=== PATIENT | male | born 1965 | race Caucasian/White ===

== ENCOUNTER 2018-04-29 12:06 | Emergency (ER) | payer MEDICAID, SELFPAY ==
[2018-04-29 12:17] VITALS: BP 144/86; PULSE 100; RESP 18; TEMP 36.6; O2SAT 96
--- NOTE | 2018-04-29 13:10 | DI.CT_ITS ---
SYMPTOMS/DIAGNOSIS: HARD NONMOBILE MASS, RIGHT NECK, HARD LYMPH NODE, LEFT NECK, ? NEOPLASM VS ABSCESS CT SCAN OF THE NECK: CT scan of the neck was performed following the uneventful administration of intravenous contrast material. There are bilateral necrotic masses in the neck. In the left neck, the largest such mass measures 2.4 cm AP x 2.4 cm transverse. This is located at the level of the angle of the mandible (series 5 image 303). On the right, there is a large necrotic mass with ill-defined borders measuring at least 4.9 cm transverse x 5.4 cm AP (series 5 image 317). This mass also lies at the angle of the mandible deep to the inferior aspect of the parotid gland. It does appear to displace the carotid artery medially. The mass appears to measure 6.6 cm craniocaudally. The airway is deviated to the left at the level of the uvula to the level of the epiglottis. The fat planes in the left parapharyngeal space are obliterated. This may be due to the large right necrotic mass, but the possibility of an infiltrative mass involving the tonsils and tongue base cannot be excluded in this region. The left submandibular gland is unremarkable. The right submandibular gland is visualized. There is loss of a fat plate between the posterior aspect of the right submandibular gland and the large necrotic right mass. The thyroid gland is unremarkable. The soft tissues of the right neck are infiltrative. No focal fluid collection is seen, but there does appear to be some thickening of the skin and the right and the right platysma. The lung apices show central lobular emphysematous changes. In the left upper lobe on the last images, there is a question of a filling defect in a vessel in the left upper lobe and pulmonary embolus cannot be excluded. CT PE scan of the chest should be considered for further evaluation. There is opacification of the right ethmoid air cells and near complete opacification of the right maxillary sinus. There is mucosal thickening seen in the right mastoid air cells. The left maxillary sinus is well pneumatized. Mild degenerative changes are seen in the spine. IMPRESSION: 1. Enlarged cervical necrotic masses suspicious for necrotic lymphadenopathy. The largest mass is seen in the right neck at the level of the angle of the mandible. Differential considerations include metastatic disease, lymphoma. Infectious or inflammatory process is considered less likely. 2. Leftward deviation of the airway with loss of fat planes in the right parapharyngeal space and an infiltrative mass cannot be excluded. This may represent a primary head and neck cancer. MRI with contrast may be considered for further evaluation. 3. Question of a filling defect in a vessel in the left upper lobe. CT PE scan of the chest is recommended to exclude a pulmonary embolus. 4. Extensive sinus disease, particularly involving the right paranasal sinuses and right mastoid air cells. These findings were discussed with the Emergency Department on the date of the examination.
[2018-04-29] MEDS: Normal Saline 1,000 ML 1000 ML IV (13:15)
[2018-04-29 13:31] LABS: Abs Immature Grans 0.01 k/cumm (0.0-0.09); Absolute Basophil Count 0.03 k/cumm (0.0-0.2); Absolute Eosinophil Count 0.13 k/cumm (0.0-0.7); Absolute Lymphocyte Count 2.34 k/cumm (1.2-3.4); Absolute Monocyte Count 0.51 k/cumm (0.11-0.7); Absolute Neutrophil Count 5.04 k/cumm (1.2-6.7); Basophils % 0.4; Eosinophils % 1.6; HCT 42.5 % (40.0-50.0); Immature Grans % 0.1; Mean Corp. HGB Concentration 32.9 g/dL (32.0-36.0); Mean Corpuscular Volume 91.2 fL (80-95); Mean Platelet Volume 8.7 fL (8.0-11.0); Monocytes % 6.3; Neutrophils % 62.6; Platelet Count 535 x1000/uL (130-400); RBC 4.66 m/cumm (4.50-6.00); RBC Distribution Width 14.2 % (11.8-14.1); White Blood Cell Count 8.06 k/cumm (4.4-10.8)
[2018-04-29 13:48] LABS: ALT 10 U/L (12-78); AST 14 U/L (15-37); Albumin 3.5 g/dL (3.4-5.0); Alkaline Phosphatase 110 U/L (46-116); Anion Gap 9.3 mmol/L (3-11); BUN 10 mg/dL (7-18); Bilirubin, Total 0.3 mg/dL (0.2-1.0); CO2 29.7 mmol/L (21.0-32.0); CREATININE 0.94 mg/dL (0.70-1.30); Calcium 9.3 mg/dL (8.5-10.1); Chloride 99 mmol/L (98-107); Glucose 116 mg/dL (70-100); Sodium 138 mmol/L (136-145); Total Protein 8.2 g/dL (6.4-8.2)
[2018-04-29] MEDS: Omnipaque 350 MG/ML 100 ML BTL IJ ×2 (14:34→15:37)
--- NOTE | 2018-04-29 14:41 | W.ED.GENAD ---
Discharge Plan Disposition Patient Disposition: HOME Condition: Stable Discharge Details Chief Complaint: GenMedical Clinical Impression: Mass of right side of neck, Lymphadenopathy Primary Care Provider: None,None ED Provider: Perla Balbuena Home Meds and New Rx's Prescriptions: New methylprednisolone [Medrol (Butch)] 4 mg tablets,dose pack See Rx Instructions .ROUTE .COMPLEX Qty: 21 RF: 0 No Action No Known Home Meds RF: 0 Discharge Instructions Instructions: Lymphadenopathy (ED) Additional Instructions: You will receive a call from [facility] ENT/Head and Neck clinic in the next few days regarding follow up within the next week. If you do not hear from [facility] in the next few days, you may call the [facility] Main number at [phone] and ask for ENT or Head and Neck Clinic - Dr. Moore. Take the steroids until finished. Return immediately to the emergency department if you have any worsening or new concerning symptoms such as difficulty breathing, swallowing or unable to take any food or drink. Discharge Data Discharge Physician: Perla Balbuena Medical Decision Making 53-year-old male with no documented history who is a chronic tobacco smoker who presents with chronic right-sided neck swelling for the past month, worse over the past few days along with clear and yellow rhinorrhea, and a weight loss of 30 pounds over the past 3 months. Blood pressure mildly hypertensive eyeballs. Afebrile. Patient has a hard large tender non-mobile mass in the right lateral neck, as well as a hard nonmobile tender lymph node in the left lateral neck. There appears to be an encroaching mass in his right posterior oropharynx causing deviation of the uvula to the left. He has some trismus. His airway otherwise appears intact, he is speaking in full sentences without respiratory distress, or drooling. Lungs clear to auscultation. My main concern will be a neoplastic process. Will place an IV, fluids, labs and send for CT neck. 1445 --discussed with radiology -CT notes bilateral adenopathy in the neck with some deviation of the airway to the left. Differential diagnosis includes primary tongue cancer, salivary gland tumor, Hodgkin's lymphoma, or metastatic cancer. There was a concern for a vessel in the chest for possible PE. Radiologist is recommending a CT chest to rule out PE. Will call [facility] ENT for recommendations and possible transfer. 1500 --discussed with [facility] ENT -he reviewed CT and agree with concern for possible primary tongue or salivary Cancer with metastasis. Patient will need biopsy to confirm etiology. Patient may also be appropriate for palliative care due to extent of tumor and metastases. There does not appear to be significant encroachment on the airway, and based on CT findings, and if patient is protecting his airway without stridor and able to take p.o., can be discharged home with follow-up with them within the next week in the head and neck clinic. Recommend Medrol Dosepak upon discharge. Will give 1 dose of steroids here. 1555 --CT chest negative for PE. 1630 --CT findings and plan per ENT d/w pt. He was notified that findings are concerning for a neoplasm, but will need further evaluation by ENT for determination of etiology and how to proceed further. Patient states he is able to take p.o., and able to swallow liquids and solids. He has no stridor. He feels good to go home. He is instructed that [facility] ENT will call him this week to schedule follow-up appointment, and to call them with any concerns or if he does not hear back. He is instructed to return here at any time with any worsening symptoms, if occult he swallowing, breathing or inability to take p.o. Medical Records Medical records reviewed: Yes I reviewed the patient's medical records. Imaging Data Radiologic Study: Radiologist's impression: CT SCAN OF THE NECK: CT scan of the neck was performed following the uneventful administration of intravenous contrast material. There are bilateral necrotic masses in the neck. In the left neck, the largest such mass measures 2.4 cm AP x 2.4 cm transverse. This is located at the level of the angle of the mandible (series 5 image 303). On the right, there is a large necrotic mass with ill-defined borders measuring at least 4.9 cm transverse x 5.4 cm AP (series 5 image 317). This mass also lies at the angle of the mandible deep to the inferior aspect of the parotid gland. It does appear to displace the carotid artery medially. The mass appears to measure 6.6 cm craniocaudally. The airway is deviated to the left at the level of the uvula to the level of the epiglottis. The fat planes in the left parapharyngeal space are obliterated. This may be due to the large right necrotic mass, but the possibility of an infiltrative mass involving the tonsils and tongue base cannot be excluded in this region. The left submandibular gland is unremarkable. The right submandibular gland is visualized. There is loss of a fat plate between the posterior aspect of the right submandibular gland and the large necrotic right mass. The thyroid gland is unremarkable. The soft tissues of the right neck are infiltrative. No focal fluid collection is seen, but there does appear to be some thickening of the skin and the right and the right platysma. The lung apices show central lobular emphysematous changes. In the left upper lobe on the last images, there is a question of a filling defect in a vessel in the left upper lobe and pulmonary embolus cannot be excluded. CT PE scan of the chest should be considered for further evaluation. There is opacification of the right ethmoid air cells and near complete opacification of the right maxillary sinus. There is mucosal thickening seen in the right mastoid air cells. The left maxillary sinus is well pneumatized. Mild degenerative changes are seen in the spine. IMPRESSION: 1. Enlarged cervical necrotic masses suspicious for necrotic lymphadenopathy. The largest mass is seen in the right neck at the level of the angle of the mandible. Differential considerations include metastatic disease, lymphoma. Infectious or inflammatory process is considered less likely. 2. Leftward deviation of the airway with loss of fat planes in the right parapharyngeal space and an infiltrative mass cannot be excluded. This may represent a primary head and neck cancer. MRI with contrast may be considered for further evaluation. 3. Question of a filling defect in a vessel in the left upper lobe. CT PE scan of the chest is recommended to exclude a pulmonary embolus. 4. Extensive sinus disease, particularly involving the right paranasal sinuses and right mastoid air cells. CT chest: negative for PE, acute disease, or mets. Lab Data Lab results reviewed: Yes I reviewed the patient's lab results. Laboratory Tests Range/Units 04/29/18 04/29/18 13:25 13:25 WBC (4.4-10.8) k/cumm 8.06 RBC (4.50-6.00) m/cumm 4.66 Hgb (13.5-17.5) g/dL 14.0 Hct (40.0-50.0) % 42.5 MCV (80-95) fL 91.2 MCH (27.0-33.0) pg 30.0 MCHC (32.0-36.0) g/dL 32.9 RDW (11.8-14.1) % 14.2 H Plt Count (130-400) x1000/uL 535 H MPV (8.0-11.0) fL 8.7 Immature Gran % 0.1 Neutrophils % 62.6 Lymphocytes % 29.0 Monocytes % 6.3 Eosinophils % 1.6 Basophils % 0.4 Absolute Neutrophils (1.2-6.7) k/cumm 5.04 Absolute Lymphocytes (1.2-3.4) k/cumm 2.34 Absolute Monocytes (0.11-0.7) k/cumm 0.51 Absolute Eosinophils (0.0-0.7) k/cumm 0.13 Absolute Basophils (0.0-0.2) k/cumm 0.03 Sodium (136-145) mmol/L 138 Potassium (3.5-5.1) mmol/L 4.0 Chloride (98-107) mmol/L 99 Carbon Dioxide (21.0-32.0) mmol/L 29.7 Anion Gap (3-11) mmol/L 9.3 BUN (7-18) mg/dL 10 Creatinine (0.70-1.30) mg/dL 0.94 Estimated GFR/1.73 m2 (mL/min/1.73m2) >= 60.00 Glucose (70-100) mg/dL 116 H Calcium (8.5-10.1) mg/dL 9.3 Total Bilirubin (0.2-1.0) mg/dL 0.3 AST (15-37) U/L 14 L ALT (12-78) U/L 10 L Alkaline Phosphatase (46-116) U/L 110 Total Protein (6.4-8.2) g/dL 8.2 Albumin (3.4-5.0) g/dL 3.5 HPI General Mode of arrival: ambulatory. Date/Time Provider Initiated Documentation: 04/29/18 12:26. Limitations to Documentation: no limitations. Information obtained by: patient. HPI Narrative: Patient is a 53-year-old male who presents with right-sided neck swelling for the past month, worse over the past few days. He also admits to clear and yellow nasal discharge. He states lately when he drinks any fluids it comes out both sides of his nose. He also states he has lost approximately 30 pounds in the last 3 months. He denies any known fever. He states he smokes approximately 1 pack daily and does have a chronic cough. Related Data Home Medications Medication Instructions Recorded Confirmed Unknown [No Known Home Meds] 04/29/18 04/29/18 methylprednisolone [Medrol (Butch)] See Rx Instructions .ROUTE 04/29/18 .COMPLEX #21 dose pk Previous Rx's Medication Instructions Recorded methylprednisolone [Medrol (Butch)] See Rx Instructions .ROUTE 04/29/18 .COMPLEX #21 dose pk Allergies Allergy/AdvReac Type Severity Reaction Status Date / Time No Known Allergies Allergy Unverified 04/29/18 12:17 General Stated Complaint: GenMedical SIRISHA: 3 Review of Systems Review of Systems All systems reviewed & are unremarkable except as noted in HPI and below Constitutional Denies chills, Denies excessive sweating, Denies fatigue, Denies fever(s), Denies weakness and Reports weight loss Eyes Reports system reviewed and no additional complaints, except as docu and Denies blurry vision ENT Denies vertigo, Denies dizziness, Denies otalgia, Reports nasal congestion, Reports neck mass, Reports neck pain, Reports sore throat and Reports throat swelling Cardiovascular Denies chest pain, Denies syncope, Denies rapid heart rate and Denies dyspnea Respiratory Denies chest congestion, Reports cough, Denies pain on inspiration and Denies dyspnea Gastrointestinal Denies abdominal pain, Denies diarrhea and Denies vomiting Genitourinary Denies hematuria, Denies dysuria and Denies flank pain Musculoskeletal Denies back pain, Denies joint swelling and Reports neck pain Integumentary/Breasts Denies lesions and Denies rash Neurologic Denies behavioral changes, Denies confusion, Denies vertigo, Denies dizziness, Denies syncope, Denies focal weakness and Denies weakness Psychiatric Denies behavioral changes, Denies confusion and Denies depression Endocrine Denies excessive sweating and Denies fatigue Hematologic/Lymphatic Denies easy bruising and Denies lymphadenopathy Allergic/Immunologic Reports throat swelling [facility] Medical History No significant past medical history (Acute) Surgical History No significant past surgical history (Acute) Social History Smoking and Tabacco status: Current every day tobacco type: cigarettes alcohol intake: former year quit: 2016 substance use type: does not use Exam Const General: cooperative and no acute distress Orientation: alert, awake and oriented x3 HENMT Head: normal to inspection Ears: hearing grossly normal bilaterally, external ears normal and TM abnormal erythematous on the right General nose exam: external nose normal and other (Nasal congested sound with talking) Teeth and gingiva: dentition normal Throat: posterior oropharynx abnormal (significant mass/edema noted in R posterior oropharynx) edema, erythema and exudates and uvula laterally displaced to the left Eyes General: appearance normal, both eyes and all related structures Eyelids: eyelids normal Pupils: PERRL EOM: EOM intact bilaterally Neck Neck: normal visual inspection Lymphatic: no lymphadenopathy noted Neck images: 1. Approx. 8x8cm large Hard tender nonmobile mass noted in right lateral neck just below ear. 2. 4x4cm hard tender mass, may be lymph node Chest Chest: normal inspection of the chest Resp Effort & Inspection: normal respiratory effort and able to speak in complete sentences Auscultation: clear to auscultation bilaterally Cardio Rate: regular rate Rhythm: regular rhythm GI Inspection: normal to inspection Palpation: soft, not firm, no guarding, no hepatosplenomegaly, no masses and nontender Auscultation: normal bowel sounds Back/Spine/Pelvis Back: no CVA tenderness Skin General skin exam: no rashes or lesions noted Neuro General: alert and awake Cognition: normal cognition Speech: speech normal Gait: normal gait Motor: muscle tone normal throughout Sensory Exam: no sensory deficits noted Extrem General: normal to inspection, full ROM and normal capillary refill Psych Appearance: grossly normal Mental Status: mental status grossly normal Speech and Movement: speech and movement normal Affect: normal affect Thought Process: normal Course Vital Signs Temperature 97.9 F 04/29/18 12:17 Pulse 100 H 04/29/18 12:17 Respiratory Rate 18 04/29/18 12:17 Blood Pressure 144/86 H 04/29/18 12:17 Pulse Oximetry 96 04/29/18 12:17 Temperature 97.9 F 04/29/18 12:17 Temperature Source Temporal Artery Scan 04/29/18 12:17 Pulse 100 H 04/29/18 12:17 Respiratory Rate 18 04/29/18 12:17 Respiratory Effort Non-Labored 04/29/18 12:24 Blood Pressure 144/86 H 04/29/18 12:17 Blood Pressure Position Sitting 04/29/18 12:17 Pulse Oximetry 96 04/29/18 12:17 Oxygen Delivery Method Room Air 04/29/18 12:17 Oxygen Flow Rate 0 04/29/18 12:17 Pain Level 7 04/29/18 12:17 Lab/Test Results Lab/Test Results: Laboratory Tests Range/Units 04/29/18 04/29/18 13:25 13:25 WBC (4.4-10.8) k/cumm 8.06 RBC (4.50-6.00) m/cumm 4.66 Hgb (13.5-17.5) g/dL 14.0 Hct (40.0-50.0) % 42.5 MCV (80-95) fL 91.2 MCH (27.0-33.0) pg 30.0 MCHC (32.0-36.0) g/dL 32.9 RDW (11.8-14.1) % 14.2 H Plt Count (130-400) x1000/uL 535 H MPV (8.0-11.0) fL 8.7 Immature Gran % 0.1 Neutrophils % 62.6 Lymphocytes % 29.0 Monocytes % 6.3 Eosinophils % 1.6 Basophils % 0.4 Absolute Neutrophils (1.2-6.7) k/cumm 5.04 Absolute Lymphocytes (1.2-3.4) k/cumm 2.34 Absolute Monocytes (0.11-0.7) k/cumm 0.51 Absolute Eosinophils (0.0-0.7) k/cumm 0.13 Absolute Basophils (0.0-0.2) k/cumm 0.03 Sodium (136-145) mmol/L 138 Potassium (3.5-5.1) mmol/L 4.0 Chloride (98-107) mmol/L 99 Carbon Dioxide (21.0-32.0) mmol/L 29.7 Anion Gap (3-11) mmol/L 9.3 BUN (7-18) mg/dL 10 Creatinine (0.70-1.30) mg/dL 0.94 Estimated GFR/1.73 m2 (mL/min/1.73m2) >= 60.00 Glucose (70-100) mg/dL 116 H Calcium (8.5-10.1) mg/dL 9.3 Total Bilirubin (0.2-1.0) mg/dL 0.3 AST (15-37) U/L 14 L ALT (12-78) U/L 10 L Alkaline Phosphatase (46-116) U/L 110 Total Protein (6.4-8.2) g/dL 8.2 Albumin (3.4-5.0) g/dL 3.5
--- NOTE | 2018-04-29 14:45 | ED.GENADUL_ITS ---
Discharge Plan Disposition Patient Disposition: HOME Condition: Stable Discharge Details Chief Complaint: GenMedical Clinical Impression: Mass of right side of neck, Lymphadenopathy Primary Care Provider: None,None ED Provider: Perla Balbuena Home Meds and New Rx's Prescriptions: New methylprednisolone [Medrol (Butch)] 4 mg tablets,dose pack See Rx Instructions .ROUTE .COMPLEX Qty: 21 RF: 0 No Action No Known Home Meds RF: 0 Discharge Instructions Instructions: Lymphadenopathy (ED) Additional Instructions: You will receive a call from [facility] ENT/Head and Neck clinic in the next few days regarding follow up within the next week. If you do not hear from [facility] in the next few days, you may call the [facility] Main number at [phone] and ask for ENT or Head and Neck Clinic - Dr. Moore. Take the steroids until finished. Return immediately to the emergency department if you have any worsening or new concerning symptoms such as difficulty breathing, swallowing or unable to take any food or drink. Discharge Data Discharge Physician: Perla Balbuena Medical Decision Making 53-year-old male with no documented history who is a chronic tobacco smoker who presents with chronic right-sided neck swelling for the past month, worse over the past few days along with clear and yellow rhinorrhea, and a weight loss of 30 pounds over the past 3 months. Blood pressure mildly hypertensive eyeballs. Afebrile. Patient has a hard large tender non-mobile mass in the right lateral neck, as well as a hard no nmobile tender lymph node in the left lateral neck. There appears to be an encroaching mass in his right posterior oropharynx causing deviation of the uvula to the left. He has some trismus. His airway otherwise appears intact, he is speaking in full sentences without respiratory distress, or drooling. Lungs clear to auscultation. My main concern will be a neoplastic process. Will place an IV, fluids, labs and send for CT neck. 1445 --discussed with radiology -CT notes bilateral adenopathy in the neck with some deviation of the airway to the left. Differential diagnosis includes primary tongue cancer, salivary gland tumor, Hodgkin's lymphoma, or metastatic cancer. There was a concern for a vessel in the chest for possible PE. Radiologist is recommending a CT chest to rule out PE. Will call [facility] ENT for recommendations and possible transfer. 1500 --discussed with [facility] ENT -he reviewed CT and agree with concern for possible primary tongue or salivary Cancer with metastasis. Patient will need biopsy to confirm etiology. Patient may also be appropriate for palliative care due to extent of tumor and metastases. There does not appear to be significant encroachment on the airway, and based on CT findings, and if patient is protecting his airway without stridor and able to take p.o., can be discharged home with follow-up with them within the next week in the head and neck clinic. Recommend Medrol Dosepak upon discharge. Will give 1 dose of steroids here. 1555 --CT chest negative for PE. 1630 --CT findings and plan per ENT d/w pt. He was notified that findings are concerning for a neoplasm, but will need further evaluation by ENT for determination of etiology and how to proceed further. Patient states he is able to take p.o., and able to swallow liquids and solids. He has no stridor. He feels good to go home. He is instructed that [facility] ENT will call him this week to schedule follow- up appointment, and to call them with any concerns or if he does not hear back. He is instructed to return here at any time with any worsening symptoms, if occult he swallowing, breathing or inability to take p.o. Medical Records Medical records reviewed: Yes I reviewed the patient's medical records. Imaging Data Radiologic Study: Radiologist's impression: CT SCAN OF THE NECK: CT scan of the neck was performed following the uneventful administration of intravenous contrast material. There are bilateral necrotic masses in the neck. In the left neck, the largest such mass measures 2.4 cm AP x 2.4 cm transverse. This is located at the level of the angle of the mandible (series 5 image 303). On the right, there is a large necrotic mass with ill-defined borders measuring at least 4.9 cm transverse x 5.4 cm AP (series 5 image 317). This mass also lie s at the angle of the mandible deep to the inferior aspect of the parotid gland. It does appear to displace the carotid artery medially. The mass appears to measure 6.6 cm craniocaudally. The airway is deviated to the left at the level of the uvula to the level of the epiglottis. The fat planes in the left parapharyngeal space are obliterated. This may be due to the large right necrotic mass, but the possibility of an infiltrative mass involving the tonsils and tongue base cannot be excluded in this region. The left submandibular gland is unremarkable. The right submandibular gland is visualized. There is loss of a fat plate between the posterior aspect of the right submandibular gland and the large necrotic right mass. The thyroid gland is unremarkable. The soft tissues of the right neck are infiltrative. No focal fluid collection is seen, but there does appear to be some thickening of the skin and the right and the right platysma. The lung apices show central lobular emphysematous changes. In the left upper lobe on the last images, there is a question of a filling defect in a vessel in the left upper lobe and pulmonary embolus cannot be excluded. CT PE scan of the chest should be considered for further evaluation. There is opacification of the right ethmoid air cells and near complete opacification of the right maxillary sinus. There is mucosal thickening seen in the right mastoid air cells. The left maxillary sinus is well pneumatized. Mild degenerative changes are seen in the spine. IMPRESSION: 1. Enlarged cervical necrotic masses suspicious for necrotic lymphadenopathy. The largest mass is seen in the right neck at the level of the angle of the mandible. Differential considerations include metastatic disease, lymphoma. Infectious or inflammatory process is considered less likely. 2. Leftward deviation of the airway with loss of fat planes in the right parapharyngeal space and an infiltrative mass cannot be excluded. This may represent a primary head and neck cancer. MRI with contrast may be considered for further evaluation. 3. Question of a filling defect in a vessel in the left upper lobe. CT PE scan of the chest is recommended to exclude a pulmonary embolus. 4. Extensive sinus disease, particularly involving the right paranasal sinuses and right mastoid air cells. CT chest: negative for PE, acute disease, or mets. Lab Data Lab results reviewed: Yes I reviewed the patient's lab results. Laboratory Tests Range/Units 04/29/18 04/29/18 13:25 13:25 WBC (4.4-10.8) k/cumm 8.06 RBC (4.50-6.00) m/cumm 4.66 Hgb (13.5-17.5) g/dL 14.0 Hct (40.0-50.0) % 42.5 MCV (80-95) fL 91.2 MCH (27.0-33.0) pg 30.0 MCHC (32.0-36.0) g/dL 32.9 RDW (11.8-14.1) % 14.2 H Plt Count (130-400) x1000/uL 535 H MPV (8.0-11.0) fL 8.7 Immature Gran % 0.1 Neutrophils % 62.6 Lymphocytes % 29.0 Monocytes % 6.3 Eosinophils % 1.6 Basophils % 0.4 Absolute Neutrophils (1.2-6.7) k/cumm 5.04 Absolute Lymphocytes (1.2-3.4) k/cumm 2.34 Absolute Monocytes (0.11-0.7) k/cumm 0.51 Absolute Eosinophils (0.0-0.7) k/cumm 0.13 Absolute Basophils (0.0-0.2) k/cumm 0.03 Sodium (136-145) mmol/L 138 Potassium (3.5-5.1) mmol/L 4.0 Chloride (98-107) mmol/L 99 Carbon Dioxide (21.0-32.0) mmol/L 29.7 Anion Gap (3-11) mmol/L 9.3 BUN (7-18) mg/dL 10 Creatinine (0.70-1.30) mg/dL 0.94 Estimated GFR/1.73 m2 (mL/min/1.73m2) >= 60.00 Glucose (70-100) mg/dL 116 H Calcium (8.5-10.1) mg/dL 9.3 Total Bilirubin (0.2-1.0) mg/dL 0.3 AST (15-37) U/L 14 L ALT (12-78) U/L 10 L Alkaline Phosphatase (46-116) U/L 110 Total Protein (6.4-8.2) g/dL 8.2 Albumin (3.4-5.0) g/dL 3.5 HPI General Mode of arrival: ambulatory . Date/Time Provider Initiated Documentation: 04/29/18 12:26 . Limitations to Documentation: no limitations . Information obtained by: patient . HPI Narrative: Patient is a 53-year-old male who presents with right-sided neck swelling for the past month, worse over the past few days. He also admits to clear and yellow nasal discharge. He states lately when he drinks any fluids it comes out both sides of his nose. He also states he has lost approximately 30 pounds in the last 3 months. He denies any known fever. He states he smokes approximately 1 pack daily and does have a chronic cough. Related Data Home Medications Medication Instructions Recorded Confirmed Unknown [No Known Home Meds] 04/29/18 04/29/18 methylprednisolone [Medrol (Butch)] See Rx Instructions .ROUTE 04/29/18 .COMPLEX #21 dose pk Previous Rx's Medication Instructions Recorded methylprednisolone [Medrol (Butch)] See Rx Instructions .ROUTE 04/29/18 .COMPLEX #21 dose pk Allergies Allergy/AdvReac Type Severity Reaction Status Date / Time No Known Allergies Allergy Unverified 04/29/18 12:17 General Stated Complaint: GenMedical SIRISHA: 3 Review of Systems Review of Systems All systems reviewed & are unremarkable except as noted in HPI and below Constitutional Denies chills, Denies excessive sweating, Denies fatigue, Denies fever(s), Denies weakness and Reports weight loss Eyes Reports system reviewed and no additional complaints, except as docu and Denies blurry vision ENT Denies vertigo, Denies dizziness, Denies otalgia, Reports nasal congestion, Reports neck mass, Reports neck pain, Reports sore throat and Reports throat swelling Cardiovascular Denies chest pain, Denies syncope, Denies rapid heart rate and Denies dyspnea Respiratory Denies chest congestion, Reports cough, Denies pain on inspiration and Denies dyspnea Gastrointestinal Denies abdominal pain, Denies diarrhea and Denies vomiting Genitourinary Denies hematuria, Denies dysuria and Denies flank pain Musculoskeletal Denies back pain, Denies joint swelling and Reports neck pain Integumentary/Breasts Denies lesions and Denies rash Neurologic Denies behavioral changes, Denies confusion, Denies vertigo, Denies dizziness, Denies syncope, Denies focal weakness and Denies weakness Psychiatric Denies behavioral changes, Denies confusion and Denies depression Endocrine Denies excessive sweating and Denies fatigue Hematologic/Lymphatic Denies easy bruising and Denies lymphadenopathy Allergic/Immunologic Reports throat swelling [facility] Medical History No significant past medical history (Acute) Surgical History No significant past surgical history (Acute) Social History Smoking and Tabacco status: Current every day tobacco type: cigarettes alcohol intake: former year quit: 2016 substance use type: does not use Exam Const General: cooperative and no acute distress Orientation: alert, awake and oriented x3 HENMT Head: normal to inspection Ears: hearing grossly normal bilaterally, external ears normal and TM abnormal erythematous on the right General nose exam: external nose normal and other (Nasal congested sound with talking) Teeth and gingiva: dentition normal Throat: posterior oropharynx abnormal (significant mass/edema noted in R posterior oropharynx) edema, erythema and exudates and uvula laterally displaced to the left Eyes General: appearance normal, both eyes and all related structures Eyelids: eyelids normal Pupils: PERRL EOM: EOM intact bilaterally Neck Neck: normal visual inspection Lymphatic: no lymphadenopathy noted Neck images: 1. Approx. 8x8cm large Hard tender nonmobile mass noted in right lateral neck just below ear. 2. 4x4cm hard tender mass, may be lymph node Chest Chest: normal inspection of the chest Resp Effort & Inspection: normal respiratory effort and able to speak in complete sentences Auscultation: clear to auscultation bilaterally Cardio Rate: regular rate Rhythm: regular rhythm GI Inspection: normal to inspection Palpation: soft, not firm, no guarding, no hepatosplenomegaly, no masses and nontender Auscultation: normal bowel sounds Back/Spine/Pelvis Back: no CVA tenderness Skin General skin exam: no rashes or lesions noted Neuro General: alert and awake Cognition: normal cognition Speech: speech normal Gait: normal gait Motor: muscle tone normal throughout Sensory Exam: no sensory deficits noted Extrem General: normal to inspection, full ROM and normal capillary refill Psych Appearance: grossly normal Mental Status: mental status grossly normal Speech and Movement: speech and movement normal Affect: normal affect Thought Process: normal Course Vital Signs Temperature 97.9 F 04/29/18 12:17 Pulse 100 H 04/29/18 12:17 Respiratory Rate 18 04/29/18 12:17 Blood Pressure 144/86 H 04/29/18 12:17 Pulse Oximetry 96 04/29/18 12:17 Temperature 97.9 F 04/29/18 12:17 Temperature Source Temporal Artery Scan 04/29/18 12:17 Pulse 100 H 04/29/18 12:17 Respiratory Rate 18 04/29/18 12:17 Respiratory Effort Non-Labored 04/29/18 12:24 Blood Pressure 144/86 H 04/29/18 12:17 Blood Pressure Position Sitting 04/29/18 12:17 Pulse Oximetry 96 04/29/18 12:17 Oxygen Delivery Method Room Air 04/29/18 12:17 Oxygen Flow Rate 0 04/29/18 12:17 Pain Level 7 04/29/18 12:17 Lab/Test Results Lab/Test Results: Laboratory Tests Range/Units 04/29/18 04/29/18 13:25 13:25 WBC (4.4-10.8) k/cumm 8.06 RBC (4.50-6.00) m/cumm 4.66 Hgb (13.5-17.5) g/dL 14.0 Hct (40.0-50.0) % 42.5 MCV (80-95) fL 91.2 MCH (27.0-33.0) pg 30.0 MCHC (32.0-36.0) g/dL 32.9 RDW (11.8-14.1) % 14.2 H Plt Count (130-400) x1000/uL 535 H MPV (8.0-11.0) fL 8.7 Immature Gran % 0.1 Neutrophils % 62.6 Lymphocytes % 29.0 Monocytes % 6.3 Eosinophils % 1.6 Basophils % 0.4 Absolute Neutrophils (1.2-6.7) k/cumm 5.04 Absolute Lymphocytes (1.2-3.4) k/cumm 2.34 Absolute Monocytes (0.11-0.7) k/cumm 0.51 Absolute Eosinophils (0.0-0.7) k/cumm 0.13 Absolute Basophils (0.0-0.2) k/cumm 0.03 Sodium (136-145) mmol/L 138 Potassium (3.5-5.1) mmol/L 4.0 Chloride (98-107) mmol/L 99 Carbon Dioxide (21.0-32.0) mmol/L 29.7 Anion Gap (3-11) mmol/L 9.3 BUN (7-18) mg/dL 10 Creatinine (0.70-1.30) mg/dL 0.94 Estimated GFR/1.73 m2 (mL/min/1.73m2) >= 60.00 Glucose (70-100) mg/dL 116 H Calcium (8.5-10.1) mg/dL 9.3 Total Bilirubin (0.2-1.0) mg/dL 0.3 AST (15-37) U/L 14 L ALT (12-78) U/L 10 L Alkaline Phosphatase (46-116) U/L 110 Total Protein (6.4-8.2) g/dL 8.2 Albumin (3.4-5.0) g/dL 3.5
--- NOTE | 2018-04-29 14:52 | DI.CT_ITS ---
SYMPTOMS/DIAGNOSIS: ASSESS FOR PULMONARY EMBOLUS CT SCAN OF THE CHEST: CT angiography was performed with multi slice acquisition and multi planar and 3D reconstruction. CT scan of the chest was performed according to the pulmonary embolus protocol. There is no evidence of a pulmonary embolus. The thoracic aorta is of normal caliber and intact. The heart size is within normal limits. There is mild pericardial thickening or a very tiny pericardial effusion present. No significant thoracic adenopathy is seen. No pleural effusion or pneumothorax is identified. No pulmonary infiltrates or nodules are seen. Mild emphysematous changes are present in the lungs. The tracheobronchial tree is unremarkable. Dependent atelectatic changes are seen in the lungs. Upper abdominal images show no acute abnormality. Degenerative changes are seen in the spine. IMPRESSION: 1. No evidence of a pulmonary embolus, thoracic aortic dissection or aneurysm. 2. COPD. 3. No evidence of thoracic adenopathy.
[2018-04-29] MEDS: methylPREDNISolone SUCC 125 MG VIAL IVP (16:04)
[2018-04-29 16:50] VITALS: BP 133/85; PULSE 84; RESP 16; TEMP 36.6; O2SAT 98
[2018-04-29 17:00] VITALS: RESP 16
== END 2018-04-29 16:59 | disposition home or self-care (01) ==
PROVIDERS: Emergency Provider Physician Assistant
DX: R22.1 Localized swelling, mass and lump, neck (principal); L04.0 Acute lymphadenitis of face, head and neck; F17.210 Nicotine dependence, cigarettes, uncomplicated
CPT/HCPCS: 36415; 70491; 71275; 80053; 96361; 96374; 99285; 85025; 99284; J2930; J3490

== ENCOUNTER 2018-06-26 07:20 | Outpatient (CLI) | payer MEDICAID, SELFPAY ==
[2018-06-26 07:41] LABS: Abs Immature Grans 0.01 k/cumm (0.0-0.09); Absolute Basophil Count 0.03 k/cumm (0.0-0.2); Absolute Eosinophil Count 0.18 k/cumm (0.0-0.7); Absolute Lymphocyte Count 2.33 k/cumm (1.2-3.4); Absolute Neutrophil Count 3.56 k/cumm (1.2-6.7); Basophils % 0.5; Eosinophils % 2.8; HCT 39.2 % (40.0-50.0); HGB 12.7 g/dL (13.5-17.5); Immature Grans % 0.2; Lymphocytes % 35.8; Mean Corp. HGB Concentration 32.4 g/dL (32.0-36.0); Mean Corpuscular Hemoglobin 30.1 pg (27.0-33.0); Mean Corpuscular Volume 92.9 fL (80-95); Mean Platelet Volume 8.8 fL (8.0-11.0); Monocytes % 6.1; Neutrophils % 54.6; Platelet Count 591 x1000/uL (130-400); RBC 4.22 m/cumm (4.50-6.00); RBC Distribution Width 14.4 % (11.8-14.1); White Blood Cell Count 6.51 k/cumm (4.4-10.8)
[2018-06-26 07:59] LABS: ALT 15 U/L (12-78); AST 12 U/L (15-37); Albumin 3.2 g/dL (3.4-5.0); Alkaline Phosphatase 82 U/L (46-116); Anion Gap 7.8 mmol/L (3-11); BUN 17 mg/dL (7-18); Bilirubin, Total 0.2 mg/dL (0.2-1.0); CO2 31.2 mmol/L (21.0-32.0); Chloride 101 mmol/L (98-107); Glucose 101 mg/dL (70-100); Sodium 140 mmol/L (136-145); Total Protein 7.3 g/dL (6.4-8.2)
== END 2018-06-26 07:40 ==
PROVIDERS: Visit Provider Nurse Practitioner Family
DX: C10.9 Malignant neoplasm of oropharynx, unspecified (principal)
CPT/HCPCS: 36415; 80053; 83735; 85025

== ENCOUNTER 2018-07-03 07:39 | Outpatient (CLI) | payer MEDICAID, SELFPAY ==
[2018-07-03 08:05] LABS: Abs Immature Grans 0.03 k/cumm (0.0-0.09); Absolute Basophil Count 0.02 k/cumm (0.0-0.2); Absolute Eosinophil Count 0.05 k/cumm (0.0-0.7); Absolute Lymphocyte Count 1.53 k/cumm (1.2-3.4); Absolute Neutrophil Count 6.19 k/cumm (1.2-6.7); Basophils % 0.2; Eosinophils % 0.6; HCT 37.4 % (40.0-50.0); HGB 12.2 g/dL (13.5-17.5); Immature Grans % 0.4; Lymphocytes % 18.4; Mean Corp. HGB Concentration 32.6 g/dL (32.0-36.0); Mean Corpuscular Hemoglobin 30.3 pg (27.0-33.0); Mean Platelet Volume 8.9 fL (8.0-11.0); Neutrophils % 74.4; RBC 4.02 m/cumm (4.50-6.00); RBC Distribution Width 14.7 % (11.8-14.1); White Blood Cell Count 8.32 k/cumm (4.4-10.8)
[2018-07-03 08:15] LABS: Platelet Count 662 x1000/uL (130-400)
[2018-07-03 08:17] LABS: ALT 22 U/L (12-78); AST 13 U/L (15-37); Alkaline Phosphatase 80 U/L (46-116); BUN 15 mg/dL (7-18); Bilirubin, Total 0.1 mg/dL (0.2-1.0); CREATININE 0.72 mg/dL (0.70-1.30); Chloride 101 mmol/L (98-107); Glucose 127 mg/dL (70-100); Magnesium 1.9 mg/dL (1.8-2.4); Sodium 138 mmol/L (136-145); Total Protein 7.2 g/dL (6.4-8.2)
== END 2018-07-03 07:59 ==
PROVIDERS: PCP Family Medicine; Visit Provider Nurse Practitioner Adult Health
DX: C10.9 Malignant neoplasm of oropharynx, unspecified (principal)
CPT/HCPCS: 36415; 80053; 83735; 85025

== ENCOUNTER 2018-07-10 07:38 | Outpatient (CLI) | payer MEDICAID, SELFPAY ==
[2018-07-10 08:00] LABS: Abs Immature Grans 0.03 k/cumm (0.0-0.09); Absolute Basophil Count 0.03 k/cumm (0.0-0.2); Absolute Eosinophil Count 0.02 k/cumm (0.0-0.7); Absolute Lymphocyte Count 0.96 k/cumm (1.2-3.4); Absolute Monocyte Count 0.34 k/cumm (0.11-0.7); Absolute Neutrophil Count 4.14 k/cumm (1.2-6.7); Basophils % 0.5; Eosinophils % 0.4; HCT 36.1 % (40.0-50.0); HGB 11.8 g/dL (13.5-17.5); Immature Grans % 0.5; Lymphocytes % 17.4; Mean Corp. HGB Concentration 32.7 g/dL (32.0-36.0); Mean Corpuscular Hemoglobin 30.3 pg (27.0-33.0); Mean Corpuscular Volume 92.8 fL (80-95); Mean Platelet Volume 8.8 fL (8.0-11.0); Monocytes % 6.2; Platelet Count 531 x1000/uL (130-400); RBC 3.89 m/cumm (4.50-6.00); RBC Distribution Width 14.5 % (11.8-14.1); White Blood Cell Count 5.52 k/cumm (4.4-10.8)
[2018-07-10 08:21] LABS: ALT 28 U/L (12-78); AST 17 U/L (15-37); Albumin 2.9 g/dL (3.4-5.0); Alkaline Phosphatase 83 U/L (46-116); BUN 11 mg/dL (7-18); Bilirubin, Total 0.1 mg/dL (0.2-1.0); Calcium 8.6 mg/dL (8.5-10.1); Chloride 97 mmol/L (98-107); Glucose 117 mg/dL (70-100); Potassium 3.9 mmol/L (3.5-5.1); Sodium 135 mmol/L (136-145); Total Protein 7.1 g/dL (6.4-8.2)
== END 2018-07-10 07:58 ==
PROVIDERS: PCP Family Medicine
DX: C10.9 Malignant neoplasm of oropharynx, unspecified (principal)
CPT/HCPCS: 36415; 80053; 83735; 85025

== ENCOUNTER 2018-07-17 07:20 | Outpatient (CLI) | payer MEDICAID, SELFPAY ==
[2018-07-17 07:52] LABS: Abs Immature Grans 0.03 k/cumm (0.0-0.09); Absolute Basophil Count 0.02 k/cumm (0.0-0.2); Absolute Eosinophil Count 0.04 k/cumm (0.0-0.7); Absolute Lymphocyte Count 1.44 k/cumm (1.2-3.4); Absolute Monocyte Count 0.39 k/cumm (0.11-0.7); Basophils % 0.3; Eosinophils % 0.6; HCT 35.7 % (40.0-50.0); HGB 11.6 g/dL (13.5-17.5); Immature Grans % 0.5; Lymphocytes % 22.8; Mean Corp. HGB Concentration 32.5 g/dL (32.0-36.0); Mean Corpuscular Hemoglobin 30.4 pg (27.0-33.0); Mean Corpuscular Volume 93.5 fL (80-95); Mean Platelet Volume 8.8 fL (8.0-11.0); Monocytes % 6.2; Neutrophils % 69.6; Platelet Count 489 x1000/uL (130-400); RBC 3.82 m/cumm (4.50-6.00); RBC Distribution Width 14.9 % (11.8-14.1); White Blood Cell Count 6.32 k/cumm (4.4-10.8)
[2018-07-17 08:13] LABS: ALT 30 U/L (12-78); AST 20 U/L (15-37); Alkaline Phosphatase 90 U/L (46-116); Anion Gap 7.2 mmol/L (3-11); BUN 11 mg/dL (7-18); Bilirubin, Total 0.1 mg/dL (0.2-1.0); CO2 29.8 mmol/L (21.0-32.0); Chloride 98 mmol/L (98-107); Glucose 106 mg/dL (70-100); Magnesium 1.9 mg/dL (1.8-2.4); Sodium 135 mmol/L (136-145); Total Protein 7.2 g/dL (6.4-8.2)
== END 2018-07-17 07:40 ==
PROVIDERS: PCP Family Medicine
DX: C10.9 Malignant neoplasm of oropharynx, unspecified (principal)
CPT/HCPCS: 36415; 80053; 83735; 85025

== ENCOUNTER 2018-07-24 07:31 | Outpatient (CLI) | payer MEDICAID, SELFPAY ==
[2018-07-24 07:59] LABS: Abs Immature Grans 0.01 k/cumm (0.0-0.09); Absolute Basophil Count 0.02 k/cumm (0.0-0.2); Absolute Eosinophil Count 0.02 k/cumm (0.0-0.7); Absolute Lymphocyte Count 0.99 k/cumm (1.2-3.4); Absolute Monocyte Count 0.17 k/cumm (0.11-0.7); Absolute Neutrophil Count 2.77 k/cumm (1.2-6.7); Basophils % 0.5; Eosinophils % 0.5; HCT 33.5 % (40.0-50.0); HGB 10.9 g/dL (13.5-17.5); Immature Grans % 0.3; Lymphocytes % 24.9; Mean Corp. HGB Concentration 32.5 g/dL (32.0-36.0); Mean Corpuscular Hemoglobin 30.3 pg (27.0-33.0); Mean Corpuscular Volume 93.1 fL (80-95); Mean Platelet Volume 8.6 fL (8.0-11.0); Monocytes % 4.3; Neutrophils % 69.5; Platelet Count 374 x1000/uL (130-400); RBC Distribution Width 14.7 % (11.8-14.1); White Blood Cell Count 3.98 k/cumm (4.4-10.8)
[2018-07-24 08:12] LABS: ALT 26 U/L (12-78); AST 17 U/L (15-37); Albumin 3.1 g/dL (3.4-5.0); Alkaline Phosphatase 93 U/L (46-116); Anion Gap 8.1 mmol/L (3-11); BUN 11 mg/dL (7-18); Bilirubin, Total 0.2 mg/dL (0.2-1.0); CO2 30.9 mmol/L (21.0-32.0); CREATININE 0.65 mg/dL (0.70-1.30); Calcium 8.9 mg/dL (8.5-10.1); Chloride 99 mmol/L (98-107); Glucose 124 mg/dL (70-100); Magnesium 1.8 mg/dL (1.8-2.4); Sodium 138 mmol/L (136-145); Total Protein 7.1 g/dL (6.4-8.2)
== END 2018-07-24 07:51 ==
PROVIDERS: PCP Family Medicine; Visit Provider Nurse Practitioner Adult Health
DX: C10.9 Malignant neoplasm of oropharynx, unspecified (principal)
CPT/HCPCS: 36415; 80053; 83735; 85025

== ENCOUNTER 2018-09-15 07:59 | Outpatient (CLI) | payer MEDICAID, SELFPAY ==
[2018-09-15 08:18] LABS: Abs Immature Grans 0.03 k/cumm (0.0-0.09); Absolute Basophil Count 0.02 k/cumm (0.0-0.2); Absolute Eosinophil Count 0.26 k/cumm (0.0-0.7); Absolute Lymphocyte Count 2.26 k/cumm (1.2-3.4); Absolute Monocyte Count 0.67 k/cumm (0.11-0.7); Absolute Neutrophil Count 4.33 k/cumm (1.2-6.7); Basophils % 0.3; Eosinophils % 3.4; HCT 39.6 % (40.0-50.0); HGB 12.8 g/dL (13.5-17.5); Immature Grans % 0.4; Lymphocytes % 29.9; Mean Corp. HGB Concentration 32.3 g/dL (32.0-36.0); Mean Corpuscular Hemoglobin 31.8 pg (27.0-33.0); Mean Corpuscular Volume 98.5 fL (80-95); Mean Platelet Volume 8.7 fL (8.0-11.0); Monocytes % 8.9; Neutrophils % 57.1; Platelet Count 455 x1000/uL (130-400); RBC 4.02 m/cumm (4.50-6.00); RBC Distribution Width 17.1 % (11.8-14.1); White Blood Cell Count 7.57 k/cumm (4.4-10.8)
[2018-09-15 09:05] LABS: ALT 22 U/L (12-78); AST 13 U/L (15-37); Albumin 3.7 g/dL (3.4-5.0); Alkaline Phosphatase 86 U/L (46-116); Anion Gap 9.8 mmol/L (3-11); BUN 24 mg/dL (7-18); Bilirubin, Total 0.2 mg/dL (0.2-1.0); CO2 27.2 mmol/L (21.0-32.0); CREATININE 0.73 mg/dL (0.70-1.30); Calcium 9.4 mg/dL (8.5-10.1); Chloride 104 mmol/L (98-107); Glucose 104 mg/dL (70-100); Sodium 141 mmol/L (136-145); Total Protein 7.6 g/dL (6.4-8.2)
== END 2018-09-15 08:19 ==
PROVIDERS: PCP Family Medicine
DX: C10.9 Malignant neoplasm of oropharynx, unspecified (principal)
CPT/HCPCS: 36415; 80053; 83735; 85025

== ENCOUNTER 2018-09-22 07:53 | Outpatient (CLI) | payer MEDICAID, SELFPAY ==
[2018-09-22 08:19] LABS: Abs Immature Grans 0.03 k/cumm (0.0-0.09); Absolute Basophil Count 0.01 k/cumm (0.0-0.2); Absolute Eosinophil Count 0.13 k/cumm (0.0-0.7); Absolute Lymphocyte Count 1.37 k/cumm (1.2-3.4); Absolute Monocyte Count 0.91 k/cumm (0.11-0.7); Absolute Neutrophil Count 6.77 k/cumm (1.2-6.7); Basophils % 0.1; Eosinophils % 1.4; HCT 38.6 % (40.0-50.0); HGB 12.7 g/dL (13.5-17.5); Immature Grans % 0.3; Lymphocytes % 14.9; Mean Corp. HGB Concentration 32.9 g/dL (32.0-36.0); Mean Corpuscular Hemoglobin 32.2 pg (27.0-33.0); Mean Platelet Volume 8.8 fL (8.0-11.0); Monocytes % 9.9; Neutrophils % 73.4; Platelet Count 488 x1000/uL (130-400); RBC 3.94 m/cumm (4.50-6.00); RBC Distribution Width 15.5 % (11.8-14.1); White Blood Cell Count 9.22 k/cumm (4.4-10.8)
[2018-09-22 08:30] LABS: ALT 21 U/L (12-78); AST 13 U/L (15-37); Albumin 3.6 g/dL (3.4-5.0); Alkaline Phosphatase 106 U/L (46-116); BUN 16 mg/dL (7-18); Bilirubin, Total 0.3 mg/dL (0.2-1.0); CREATININE 0.73 mg/dL (0.70-1.30); Calcium 9.7 mg/dL (8.5-10.1); Chloride 99 mmol/L (98-107); Glucose 134 mg/dL (70-100); Potassium 4.1 mmol/L (3.5-5.1); Sodium 137 mmol/L (136-145)
== END 2018-09-22 08:13 ==
PROVIDERS: PCP Family Medicine
DX: C10.9 Malignant neoplasm of oropharynx, unspecified (principal)
CPT/HCPCS: 36415; 80053; 83735; 85025

== ENCOUNTER 2018-09-29 07:59 | Outpatient (CLI) | payer MEDICAID, SELFPAY ==
[2018-09-29 08:16] LABS: Abs Immature Grans 0.02 k/cumm (0.0-0.09); Absolute Basophil Count 0.01 k/cumm (0.0-0.2); Absolute Eosinophil Count 0.06 k/cumm (0.0-0.7); Absolute Lymphocyte Count 0.73 k/cumm (1.2-3.4); Absolute Monocyte Count 0.64 k/cumm (0.11-0.7); Absolute Neutrophil Count 6.16 k/cumm (1.2-6.7); Basophils % 0.1; Eosinophils % 0.8; HCT 37.2 % (40.0-50.0); HGB 12.2 g/dL (13.5-17.5); Immature Grans % 0.3; Lymphocytes % 9.6; Mean Corp. HGB Concentration 32.8 g/dL (32.0-36.0); Mean Corpuscular Volume 97.6 fL (80-95); Mean Platelet Volume 8.4 fL (8.0-11.0); Monocytes % 8.4; Neutrophils % 80.8; Platelet Count 435 x1000/uL (130-400); RBC 3.81 m/cumm (4.50-6.00); RBC Distribution Width 14.8 % (11.8-14.1); White Blood Cell Count 7.62 k/cumm (4.4-10.8)
[2018-09-29 08:37] LABS: ALT 26 U/L (12-78); AST 15 U/L (15-37); Albumin 3.3 g/dL (3.4-5.0); Alkaline Phosphatase 98 U/L (46-116); BUN 18 mg/dL (7-18); Bilirubin, Total 0.3 mg/dL (0.2-1.0); CREATININE 0.76 mg/dL (0.70-1.30); Calcium 9.2 mg/dL (8.5-10.1); Chloride 99 mmol/L (98-107); Glucose 134 mg/dL (70-100); Magnesium 1.7 mg/dL (1.8-2.4); Potassium 4.1 mmol/L (3.5-5.1); Sodium 139 mmol/L (136-145); Total Protein 7.4 g/dL (6.4-8.2)
== END 2018-09-29 08:19 ==
PROVIDERS: PCP Family Medicine; Visit Provider Nurse Practitioner Family
DX: C10.9 Malignant neoplasm of oropharynx, unspecified (principal)
CPT/HCPCS: 36415; 80053; 83735; 85025

== ENCOUNTER 2018-10-07 07:17 | Outpatient (CLI) | payer MEDICAID, SELFPAY ==
[2018-10-07 07:42] LABS: Abs Immature Grans 0.01 k/cumm (0.0-0.09); Absolute Basophil Count 0.01 k/cumm (0.0-0.2); Absolute Eosinophil Count 0.04 k/cumm (0.0-0.7); Absolute Monocyte Count 0.49 k/cumm (0.11-0.7); Absolute Neutrophil Count 4.55 k/cumm (1.2-6.7); Basophils % 0.2; Eosinophils % 0.7; HCT 36.5 % (40.0-50.0); HGB 12.2 g/dL (13.5-17.5); Immature Grans % 0.2; Lymphocytes % 12.1; Mean Corp. HGB Concentration 33.4 g/dL (32.0-36.0); Mean Corpuscular Hemoglobin 32.2 pg (27.0-33.0); Mean Corpuscular Volume 96.3 fL (80-95); Mean Platelet Volume 8.6 fL (8.0-11.0); Monocytes % 8.4; Neutrophils % 78.4; Platelet Count 355 x1000/uL (130-400); RBC 3.79 m/cumm (4.50-6.00); RBC Distribution Width 14.3 % (11.8-14.1)
[2018-10-07 08:06] LABS: ALT 32 U/L (12-78); AST 17 U/L (15-37); Albumin 3.3 g/dL (3.4-5.0); Alkaline Phosphatase 95 U/L (46-116); Anion Gap 7.6 mmol/L (3-11); BUN 18 mg/dL (7-18); Bilirubin, Total 0.2 mg/dL (0.2-1.0); CO2 32.4 mmol/L (21.0-32.0); CREATININE 0.78 mg/dL (0.70-1.30); Calcium 9.1 mg/dL (8.5-10.1); Chloride 97 mmol/L (98-107); Glucose 146 mg/dL (70-100); Magnesium 1.8 mg/dL (1.8-2.4); Potassium 4.2 mmol/L (3.5-5.1); Sodium 137 mmol/L (136-145); Total Protein 7.2 g/dL (6.4-8.2)
== END 2018-10-07 07:37 ==
PROVIDERS: PCP Family Medicine; Visit Provider Nurse Practitioner Family
DX: C10.9 Malignant neoplasm of oropharynx, unspecified (principal)
CPT/HCPCS: 36415; 80053; 83735; 85025

== ENCOUNTER 2018-10-13 07:17 | Outpatient (CLI) | payer MEDICAID, SELFPAY ==
[2018-10-13 07:39] LABS: Absolute Basophil Count 0.01 k/cumm (0.0-0.2); Absolute Eosinophil Count 0.03 k/cumm (0.0-0.7); Absolute Lymphocyte Count 0.46 k/cumm (1.2-3.4); Absolute Neutrophil Count 2.83 k/cumm (1.2-6.7); Basophils % 0.3; Eosinophils % 0.8; HCT 36.3 % (40.0-50.0); HGB 12.2 g/dL (13.5-17.5); Mean Corp. HGB Concentration 33.6 g/dL (32.0-36.0); Mean Corpuscular Hemoglobin 32.5 pg (27.0-33.0); Mean Corpuscular Volume 96.8 fL (80-95); Mean Platelet Volume 8.1 fL (8.0-11.0); Monocytes % 5.7; Neutrophils % 80.2; Platelet Count 243 x1000/uL (130-400); RBC 3.75 m/cumm (4.50-6.00); RBC Distribution Width 14.3 % (11.8-14.1); White Blood Cell Count 3.53 k/cumm (4.4-10.8)
[2018-10-13 07:57] LABS: ALT 39 U/L (12-78); AST 20 U/L (15-37); Albumin 3.4 g/dL (3.4-5.0); Alkaline Phosphatase 85 U/L (46-116); Anion Gap 7.7 mmol/L (3-11); BUN 18 mg/dL (7-18); Bilirubin, Total 0.3 mg/dL (0.2-1.0); CO2 31.3 mmol/L (21.0-32.0); CREATININE 0.71 mg/dL (0.70-1.30); Chloride 97 mmol/L (98-107); Glucose 114 mg/dL (70-100); Magnesium 1.8 mg/dL (1.8-2.4); Potassium 4.4 mmol/L (3.5-5.1); Sodium 136 mmol/L (136-145)
== END 2018-10-13 07:37 ==
PROVIDERS: PCP Family Medicine; Visit Provider Nurse Practitioner Family
DX: C10.9 Malignant neoplasm of oropharynx, unspecified (principal)
CPT/HCPCS: 36415; 80053; 83735; 85025

== ENCOUNTER 2018-10-20 07:18 | Outpatient (CLI) | payer MEDICAID, SELFPAY ==
[2018-10-20 07:53] LABS: Absolute Eosinophil Count 0.02 k/cumm (0.0-0.7); Absolute Lymphocyte Count 0.42 k/cumm (1.2-3.4); Absolute Monocyte Count 0.19 k/cumm (0.11-0.7); Absolute Neutrophil Count 2.28 k/cumm (1.2-6.7); Eosinophils % 0.7; HCT 34.8 % (40.0-50.0); HGB 11.9 g/dL (13.5-17.5); Lymphocytes % 14.4; Mean Corp. HGB Concentration 34.2 g/dL (32.0-36.0); Mean Corpuscular Hemoglobin 32.9 pg (27.0-33.0); Mean Corpuscular Volume 96.1 fL (80-95); Mean Platelet Volume 8.6 fL (8.0-11.0); Monocytes % 6.5; Neutrophils % 78.4; Platelet Count 149 x1000/uL (130-400); RBC 3.62 m/cumm (4.50-6.00); RBC Distribution Width 14.2 % (11.8-14.1); White Blood Cell Count 2.91 k/cumm (4.4-10.8)
[2018-10-20 08:06] LABS: ALT 33 U/L (12-78); AST 11 U/L (15-37); Albumin 3.4 g/dL (3.4-5.0); Alkaline Phosphatase 82 U/L (46-116); BUN 18 mg/dL (7-18); Bilirubin, Total 0.2 mg/dL (0.2-1.0); Calcium 9.2 mg/dL (8.5-10.1); Chloride 98 mmol/L (98-107); Glucose 150 mg/dL (70-100); Magnesium 1.9 mg/dL (1.8-2.4); Potassium 4.4 mmol/L (3.5-5.1); Sodium 138 mmol/L (136-145); Total Protein 7.2 g/dL (6.4-8.2)
== END 2018-10-20 07:38 ==
PROVIDERS: PCP Family Medicine; Visit Provider Nurse Practitioner Family
DX: C10.9 Malignant neoplasm of oropharynx, unspecified (principal)
CPT/HCPCS: 36415; 80053; 83735; 85025

== ENCOUNTER 2018-10-27 07:17 | Outpatient (CLI) | payer MEDICAID, SELFPAY ==
[2018-10-27 07:40] LABS: HCT 32.6 % (40.0-50.0); HGB 11.1 g/dL (13.5-17.5); Mean Corpuscular Hemoglobin 32.3 pg (27.0-33.0); Mean Corpuscular Volume 94.8 fL (80-95); Mean Platelet Volume 8.2 fL (8.0-11.0); RBC 3.44 m/cumm (4.50-6.00); RBC Distribution Width 13.9 % (11.8-14.1)
[2018-10-27 07:56] LABS: ALT 30 U/L (12-78); AST 11 U/L (15-37); Albumin 3.2 g/dL (3.4-5.0); Alkaline Phosphatase 84 U/L (46-116); Anion Gap 7.6 mmol/L (3-11); BUN 19 mg/dL (7-18); Bilirubin, Total 0.2 mg/dL (0.2-1.0); CO2 30.4 mmol/L (21.0-32.0); Calcium 9.1 mg/dL (8.5-10.1); Chloride 97 mmol/L (98-107); Glucose 147 mg/dL (70-100); Magnesium 1.7 mg/dL (1.8-2.4); Potassium 4.4 mmol/L (3.5-5.1); Sodium 135 mmol/L (136-145); Total Protein 7.4 g/dL (6.4-8.2)
[2018-10-27 08:20] LABS: Platelet Count 128 x1000/uL (130-400); White Blood Cell Count 1.09 k/cumm (4.4-10.8)
[2018-10-27 08:21] LABS: Absolute Lymphocyte Count 0.27 k/cumm (1.2-3.4); Absolute Monocyte Count 0.16 k/cumm (0.11-0.7); Absolute Neutrophil Count 0.65 k/cumm (1.2-6.7); Diff Comment Manual Differential
[2018-10-27 08:22] LABS: RBC Morphology Normal
== END 2018-10-27 07:37 ==
PROVIDERS: Nurse Practitioner Family; PCP Family Medicine; Visit Provider Registered Nurse Oncology
DX: C10.9 Malignant neoplasm of oropharynx, unspecified (principal)
CPT/HCPCS: 36415; 80053; 83735; 85025

== ENCOUNTER 2018-11-03 07:13 | Outpatient (CLI) | payer MEDICAID, SELFPAY ==
[2018-11-03 07:37] LABS: Absolute Eosinophil Count 0.01 k/cumm (0.0-0.7); HCT 29.2 % (40.0-50.0); HGB 9.8 g/dL (13.5-17.5); Mean Corp. HGB Concentration 33.6 g/dL (32.0-36.0); Mean Corpuscular Hemoglobin 32.3 pg (27.0-33.0); Mean Corpuscular Volume 96.4 fL (80-95); Mean Platelet Volume 7.8 fL (8.0-11.0); Platelet Count 236 x1000/uL (130-400); RBC 3.03 m/cumm (4.50-6.00)
[2018-11-03 07:50] LABS: ALT 21 U/L (16-63); AST 11 U/L (15-37); Albumin 2.8 g/dL (3.4-5.0); Alkaline Phosphatase 79 U/L (46-116); Anion Gap 6.7 mmol/L (3-11); BUN 25 mg/dL (7-18); Bilirubin, Total 0.1 mg/dL (0.2-1.0); CO2 32.3 mmol/L (21.0-32.0); CREATININE 0.77 mg/dL (0.70-1.30); Chloride 99 mmol/L (98-107); Glucose 170 mg/dL (70-100); Magnesium 1.7 mg/dL (1.8-2.4); Potassium 4.1 mmol/L (3.5-5.1); Sodium 138 mmol/L (136-145); Total Protein 7.4 g/dL (6.4-8.2)
[2018-11-03 08:16] LABS: Diff Comment Manual Differential
[2018-11-03 08:17] LABS: Absolute Lymphocyte Count 0.27 k/cumm (1.2-3.4); Absolute Monocyte Count 0.31 k/cumm (0.11-0.7); Absolute Neutrophil Count 0.81 k/cumm (1.2-6.7)
[2018-11-03 08:18] LABS: Polychromasia Present
== END 2018-11-03 07:33 ==
PROVIDERS: PCP Family Medicine; Visit Provider Nurse Practitioner Family
DX: C10.9 Malignant neoplasm of oropharynx, unspecified (principal)
CPT/HCPCS: 36415; 80053; 83735; 85025

== ENCOUNTER 2018-11-17 11:58 | Outpatient (CLI) | payer MEDICAID, SELFPAY ==
[2018-11-17 12:24] LABS: Abs Immature Grans 0.07 k/cumm (0.0-0.09); Absolute Basophil Count 0.01 k/cumm (0.0-0.2); Absolute Monocyte Count 0.54 k/cumm (0.11-0.7); Absolute Neutrophil Count 3.63 k/cumm (1.2-6.7); Basophils % 0.2; HCT 33.3 % (40.0-50.0); HGB 11.1 g/dL (13.5-17.5); Immature Grans % 1.5; Lymphocytes % 10.5; Mean Corp. HGB Concentration 33.3 g/dL (32.0-36.0); Mean Corpuscular Hemoglobin 32.6 pg (27.0-33.0); Mean Corpuscular Volume 97.7 fL (80-95); Mean Platelet Volume 8.2 fL (8.0-11.0); Monocytes % 11.4; Neutrophils % 76.4; Platelet Count 558 x1000/uL (130-400); RBC 3.41 m/cumm (4.50-6.00); RBC Distribution Width 15.4 % (11.8-14.1); White Blood Cell Count 4.75 k/cumm (4.4-10.8)
[2018-11-17 12:33] LABS: ALT 18 U/L (16-63); AST 15 U/L (15-37); Albumin 3.2 g/dL (3.4-5.0); Alkaline Phosphatase 108 U/L (46-116); Anion Gap 8.7 mmol/L (3-11); BUN 23 mg/dL (7-18); Bilirubin, Total 0.2 mg/dL (0.2-1.0); CO2 31.3 mmol/L (21.0-32.0); CREATININE 0.83 mg/dL (0.70-1.30); Chloride 100 mmol/L (98-107); Glucose 132 mg/dL (70-100); Magnesium 1.8 mg/dL (1.8-2.4); Potassium 4.1 mmol/L (3.5-5.1); Sodium 140 mmol/L (136-145); Total Protein 7.4 g/dL (6.4-8.2)
== END 2018-11-17 12:18 ==
PROVIDERS: PCP Family Medicine; Visit Provider Nurse Practitioner Family
DX: C10.9 Malignant neoplasm of oropharynx, unspecified (principal)
CPT/HCPCS: 36415; 80053; 83735; 85025

== ENCOUNTER 2018-12-01 12:23 | Outpatient (CLI) | payer MEDICAID, SELFPAY ==
[2018-12-01 13:00] LABS: Abs Immature Grans 0.02 k/cumm (0.0-0.09); Absolute Basophil Count 0.01 k/cumm (0.0-0.2); Absolute Lymphocyte Count 0.62 k/cumm (1.2-3.4); Absolute Monocyte Count 0.72 k/cumm (0.11-0.7); Absolute Neutrophil Count 4.28 k/cumm (1.2-6.7); Basophils % 0.2; Eosinophils % 1.7; HCT 34.5 % (40.0-50.0); HGB 11.3 g/dL (13.5-17.5); Immature Grans % 0.3; Lymphocytes % 10.8; Mean Corp. HGB Concentration 32.8 g/dL (32.0-36.0); Mean Corpuscular Hemoglobin 32.4 pg (27.0-33.0); Mean Corpuscular Volume 98.9 fL (80-95); Monocytes % 12.5; Neutrophils % 74.5; Platelet Count 439 x1000/uL (130-400); RBC 3.49 m/cumm (4.50-6.00); RBC Distribution Width 16.3 % (11.8-14.1); White Blood Cell Count 5.75 k/cumm (4.4-10.8)
[2018-12-01 13:06] LABS: ALT 21 U/L (16-63); AST 15 U/L (15-37); Albumin 3.5 g/dL (3.4-5.0); Alkaline Phosphatase 85 U/L (46-116); Anion Gap 6.2 mmol/L (3-11); BUN 22 mg/dL (7-18); Bilirubin, Total 0.3 mg/dL (0.2-1.0); CO2 30.8 mmol/L (21.0-32.0); CREATININE 0.76 mg/dL (0.70-1.30); Calcium 9.4 mg/dL (8.5-10.1); Chloride 102 mmol/L (98-107); Glucose 98 mg/dL (70-100); Potassium 4.7 mmol/L (3.5-5.1); Sodium 139 mmol/L (136-145); Total Protein 7.5 g/dL (6.4-8.2)
== END 2018-12-01 12:43 ==
PROVIDERS: PCP Family Medicine; Visit Provider Registered Nurse Oncology
DX: C10.9 Malignant neoplasm of oropharynx, unspecified (principal)
CPT/HCPCS: 36415; 80053; 83735; 85025

== ENCOUNTER 2019-03-06 09:33 | Outpatient (CLI) | payer MEDICAID, SELFPAY ==
[2019-03-06 10:06] LABS: Absolute Basophil Count 0.01 k/cumm (0.0-0.2); Absolute Eosinophil Count 0.01 k/cumm (0.0-0.7); Absolute Lymphocyte Count 0.41 k/cumm (1.2-3.4); Absolute Monocyte Count 0.25 k/cumm (0.11-0.7); Absolute Neutrophil Count 1.46 k/cumm (1.2-6.7); Basophils % 0.5; Eosinophils % 0.5; HCT 36.8 % (40.0-50.0); Lymphocytes % 19.2; Mean Corp. HGB Concentration 32.6 g/dL (32.0-36.0); Mean Corpuscular Hemoglobin 31.2 pg (27.0-33.0); Mean Corpuscular Volume 95.6 fL (80-95); Mean Platelet Volume 8.7 fL (8.0-11.0); Monocytes % 11.7; Neutrophils % 68.1; Platelet Count 147 x1000/uL (130-400); RBC 3.85 m/cumm (4.50-6.00); RBC Distribution Width 13.8 % (11.8-14.1); White Blood Cell Count 2.14 k/cumm (4.4-10.8)
[2019-03-06 10:37] LABS: ALT 18 U/L (16-63); AST 15 U/L (15-37); Albumin 3.7 g/dL (3.4-5.0); Alkaline Phosphatase 82 U/L (46-116); Anion Gap 6.3 mmol/L (3-11); BUN 19 mg/dL (7-18); Bilirubin, Total 0.2 mg/dL (0.2-1.0); CO2 33.7 mmol/L (21.0-32.0); CREATININE 0.65 mg/dL (0.70-1.30); Calcium 9.6 mg/dL (8.5-10.1); Chloride 103 mmol/L (98-107); FREE T4 1.09 ng/dL (0.76-1.46); Glucose 138 mg/dL (74-106); Magnesium 1.9 mg/dL (1.8-2.4); Potassium 4.1 mmol/L (3.5-5.1); Sodium 143 mmol/L (136-145); TSH 1.08 uIU/mL (0.36-3.74); Total Protein 7.7 g/dL (6.4-8.2)
== END 2019-03-06 09:53 ==
PROVIDERS: PCP Family Medicine; Visit Provider Internal Medicine Hematology & Oncology
DX: R22.0 Localized swelling, mass and lump, head (principal); C10.9 Malignant neoplasm of oropharynx, unspecified
CPT/HCPCS: 36415; 80053; 83735; 84439; 84443; 85025

== ENCOUNTER 2019-03-30 01:10 | Outpatient (RCR) | payer MEDICAID, SELFPAY | END 2019-04-10 23:59 | disposition home or self-care (01) | LOC: INF 01:10 | PROVIDERS: PCP Family Medicine; Visit Provider Internal Medicine Hematology & Oncology | DX: R69 Illness, unspecified (principal) ==

== ENCOUNTER 2019-03-30 09:50 | Outpatient (CLI) | payer MEDICAID, SELFPAY ==
[2019-03-30 10:15] LABS: Abs Immature Grans 0.01 k/cumm (0.0-0.09); Absolute Monocyte Count 0.41 k/cumm (0.11-0.7); Absolute Neutrophil Count 1.89 k/cumm (1.2-6.7); HCT 31.1 % (40.0-50.0); HGB 10.3 g/dL (13.5-17.5); Immature Grans % 0.4 %; Lymphocytes % 17.8; Mean Corp. HGB Concentration 33.1 g/dL (32.0-36.0); Mean Corpuscular Hemoglobin 31.5 pg (27.0-33.0); Mean Corpuscular Volume 95.1 fL (80-95); Mean Platelet Volume 8.7 fL (8.0-11.0); Monocytes % 14.6; Neutrophils % 67.2; Platelet Count 125 x1000/uL (130-400); RBC 3.27 m/cumm (4.50-6.00); White Blood Cell Count 2.81 k/cumm (4.4-10.8)
[2019-03-30 10:36] LABS: ALT 23 U/L (16-63); AST 18 U/L (15-37); Albumin 3.5 g/dL (3.4-5.0); Alkaline Phosphatase 83 U/L (46-116); Anion Gap 7.4 mmol/L (3-11); BUN 22 mg/dL (7-18); Bilirubin, Total 0.2 mg/dL (0.2-1.0); CO2 32.6 mmol/L (21.0-32.0); CREATININE 0.64 mg/dL (0.70-1.30); Calcium 9.5 mg/dL (8.5-10.1); Chloride 101 mmol/L (98-107); FREE T4 1.11 ng/dL (0.76-1.46); Glucose 121 mg/dL (74-106); Magnesium 1.9 mg/dL (1.8-2.4); Potassium 4.1 mmol/L (3.5-5.1); Sodium 141 mmol/L (136-145); TSH 2.09 uIU/mL (0.36-3.74); Total Protein 7.3 g/dL (6.4-8.2)
== END 2019-03-30 10:10 ==
PROVIDERS: PCP Family Medicine; Visit Provider Internal Medicine Hematology & Oncology
DX: C10.9 Malignant neoplasm of oropharynx, unspecified (principal); R22.0 Localized swelling, mass and lump, head
CPT/HCPCS: 36415; 80053; 83735; 84439; 84443; 85025

== ENCOUNTER 2019-04-20 09:58 | Outpatient (CLI) | payer MEDICAID, SELFPAY ==
[2019-04-20 10:35] LABS: Abs Immature Grans 0.01 k/cumm (0.0-0.09); Absolute Lymphocyte Count 0.37 k/cumm (1.2-3.4); Absolute Monocyte Count 0.33 k/cumm (0.11-0.7); Absolute Neutrophil Count 1.48 k/cumm (1.2-6.7); Immature Grans % 0.5 %; Lymphocytes % 16.9; Mean Corp. HGB Concentration 33.2 g/dL (32.0-36.0); Mean Corpuscular Hemoglobin 32.2 pg (27.0-33.0); Mean Platelet Volume 9.1 fL (8.0-11.0); Monocytes % 15.1; Neutrophils % 67.5; RBC 1.99 m/cumm (4.50-6.00); RBC Distribution Width 16.8 % (11.8-14.1); White Blood Cell Count 2.19 k/cumm (4.4-10.8)
[2019-04-20 10:45] LABS: ALT 17 U/L (16-63); AST 15 U/L (15-37); Albumin 3.4 g/dL (3.4-5.0); Alkaline Phosphatase 96 U/L (46-116); Anion Gap 4.8 mmol/L (3-11); BUN 17 mg/dL (7-18); Bilirubin, Total 0.2 mg/dL (0.2-1.0); CO2 32.2 mmol/L (21.0-32.0); CREATININE 0.76 mg/dL (0.70-1.30); Calcium 9.1 mg/dL (8.5-10.1); Chloride 99 mmol/L (98-107); Glucose 124 mg/dL (74-106); Magnesium 1.9 mg/dL (1.8-2.4); Sodium 136 mmol/L (136-145); TSH 2.81 uIU/mL (0.36-3.74); Total Protein 7.3 g/dL (6.4-8.2)
[2019-04-20 11:01] LABS: HGB 6.4 g/dL (13.5-17.5)
[2019-04-20 11:02] LABS: HCT 19.3 % (40.0-50.0); Platelet Count 75 x1000/uL (130-400)
[2019-04-20 11:03] LABS: Anisocytosis 2+; Diff Comment RBC Morph Reviewed; Hypochromasia 2+; Polychromasia Present
== END 2019-04-20 10:18 ==
PROVIDERS: PCP Family Medicine; Visit Provider Internal Medicine Hematology & Oncology
DX: C10.9 Malignant neoplasm of oropharynx, unspecified (principal); R22.0 Localized swelling, mass and lump, head
CPT/HCPCS: 36415; 80053; 86850; 86900; 86901; 86920; 83735; 84439; 84443; 85025

== ENCOUNTER 2019-04-27 02:40 | Outpatient (RCR) | payer MEDICAID, SELFPAY ==
[2019-04-21 09:13] VITALS: BP 107/68; PULSE 94; RESP 16; TEMP 36.7; O2SAT 99
[2019-04-21 09:28] VITALS: BP 103/63; PULSE 90; RESP 16; TEMP 36.7; O2SAT 100
[2019-04-21 09:58] VITALS: BP 113/68; PULSE 87; RESP 16; TEMP 36.6; O2SAT 99
[2019-04-21 11:00] VITALS: BP 103/67; PULSE 80; RESP 15; TEMP 36.4; O2SAT 99
[2019-04-21] MEDS: Heparin 500 UNITS/5 ML SYRINGE IV (11:14)
[2019-04-21] MEDS: Normal Saline Flush 10 ML SYR IVP (11:14)
== END 2019-05-09 23:59 | disposition home or self-care (01) ==
LOC: INF 02:40
PROVIDERS: PCP Family Medicine; Visit Provider Internal Medicine Hematology & Oncology
DX: C10.9 Malignant neoplasm of oropharynx, unspecified (principal); D64.9 Anemia, unspecified
CPT/HCPCS: 36415; 36430; 86850; 86900; 86901; 86920; P9016

== ENCOUNTER 2019-04-27 09:30 | Outpatient (CLI) | payer MEDICAID, SELFPAY ==
[2019-04-27 09:52] LABS: Abs Immature Grans 0.01 k/cumm (0.0-0.09); Absolute Eosinophil Count 0.01 k/cumm (0.0-0.7); Absolute Lymphocyte Count 0.56 k/cumm (1.2-3.4); Absolute Monocyte Count 0.47 k/cumm (0.11-0.7); Absolute Neutrophil Count 2.05 k/cumm (1.2-6.7); Eosinophils % 0.3; HCT 24.5 % (40.0-50.0); Immature Grans % 0.3 %; Lymphocytes % 18.1; Mean Corp. HGB Concentration 32.7 g/dL (32.0-36.0); Mean Corpuscular Hemoglobin 32.9 pg (27.0-33.0); Mean Corpuscular Volume 100.8 fL (80-95); Mean Platelet Volume 8.4 fL (8.0-11.0); Monocytes % 15.2; Neutrophils % 66.1; Platelet Count 206 x1000/uL (130-400); RBC 2.43 m/cumm (4.50-6.00); RBC Distribution Width 19.7 % (11.8-14.1)
[2019-04-27 10:14] LABS: ALT 17 U/L (16-63); AST 15 U/L (15-37); Albumin 3.6 g/dL (3.4-5.0); Alkaline Phosphatase 91 U/L (46-116); Anion Gap 10.1 mmol/L (3-11); BUN 17 mg/dL (7-18); Bilirubin, Total 0.3 mg/dL (0.2-1.0); CO2 30.9 mmol/L (21.0-32.0); CREATININE 0.72 mg/dL (0.70-1.30); Calcium 9.2 mg/dL (8.5-10.1); Chloride 100 mmol/L (98-107); FREE T4 0.93 ng/dL (0.76-1.46); Glucose 116 mg/dL (74-106); Magnesium 1.9 mg/dL (1.8-2.4); Potassium 3.3 mmol/L (3.5-5.1); Sodium 141 mmol/L (136-145); TSH 3.14 uIU/mL (0.36-3.74); Total Protein 7.5 g/dL (6.4-8.2)
== END 2019-04-27 09:50 ==
PROVIDERS: PCP Family Medicine; Visit Provider Nurse Practitioner Family
DX: C10.9 Malignant neoplasm of oropharynx, unspecified (principal); R22.0 Localized swelling, mass and lump, head
CPT/HCPCS: 36415; 80053; 83735; 84439; 84443; 85025

== ENCOUNTER 2019-05-11 10:00 | Outpatient (CLI) | payer MEDICAID, SELFPAY ==
[2019-05-11 10:19] LABS: Abs Immature Grans 0.09 k/cumm (0.0-0.09); Absolute Basophil Count 0.01 k/cumm (0.0-0.2); Absolute Lymphocyte Count 0.56 k/cumm (1.2-3.4); Absolute Monocyte Count 0.65 k/cumm (0.11-0.7); Absolute Neutrophil Count 5.42 k/cumm (1.2-6.7); Basophils % 0.1; HCT 30.4 % (40.0-50.0); HGB 9.6 g/dL (13.5-17.5); Immature Grans % 1.3 %; Lymphocytes % 8.3; Mean Corp. HGB Concentration 31.6 g/dL (32.0-36.0); Mean Corpuscular Hemoglobin 34.2 pg (27.0-33.0); Mean Corpuscular Volume 108.2 fL (80-95); Mean Platelet Volume 7.4 fL (8.0-11.0); Monocytes % 9.7; Neutrophils % 80.6; Platelet Count 464 x1000/uL (130-400); RBC 2.81 m/cumm (4.50-6.00); RBC Distribution Width 22.7 % (11.8-14.1); White Blood Cell Count 6.73 k/cumm (4.4-10.8)
[2019-05-11 10:39] LABS: ALT 21 U/L (16-63); AST 12 U/L (15-37); Albumin 3.5 g/dL (3.4-5.0); Alkaline Phosphatase 63 U/L (46-116); Anion Gap 5.8 mmol/L (3-11); BUN 17 mg/dL (7-18); Bilirubin, Total 0.3 mg/dL (0.2-1.0); CO2 30.2 mmol/L (21.0-32.0); CREATININE 0.72 mg/dL (0.70-1.30); Calcium 8.5 mg/dL (8.5-10.1); Chloride 103 mmol/L (98-107); FREE T4 0.88 ng/dL (0.76-1.46); Glucose 98 mg/dL (74-106); Magnesium 1.8 mg/dL (1.8-2.4); Potassium 3.7 mmol/L (3.5-5.1); Sodium 139 mmol/L (136-145); TSH 0.55 uIU/mL (0.36-3.74); Total Protein 6.9 g/dL (6.4-8.2)
[2019-05-11 10:44] LABS: Diff Comment RBC Morph Reviewed
[2019-05-11 10:45] LABS: Anisocytosis 2+; Hypochromasia 1+; Macrocytosis 1+
== END 2019-05-11 10:20 ==
PROVIDERS: PCP Family Medicine; Visit Provider Internal Medicine Hematology & Oncology
DX: C10.9 Malignant neoplasm of oropharynx, unspecified (principal); R22.0 Localized swelling, mass and lump, head
CPT/HCPCS: 36415; 80053; 83735; 84439; 84443; 85025

== ENCOUNTER 2019-05-26 10:36 | Outpatient (CLI) | payer MEDICAID, SELFPAY ==
[2019-05-26 11:04] LABS: Abs Immature Grans 0.19 k/cumm (0.0-0.09); HCT 34.2 % (40.0-50.0); HGB 10.9 g/dL (13.5-17.5); Mean Corp. HGB Concentration 31.9 g/dL (32.0-36.0); Mean Corpuscular Hemoglobin 35.4 pg (27.0-33.0); Mean Platelet Volume 7.6 fL (8.0-11.0); Platelet Count 313 x1000/uL (130-400); RBC 3.08 m/cumm (4.50-6.00); White Blood Cell Count 7.18 k/cumm (4.4-10.8)
[2019-05-26 11:27] LABS: ALT 23 U/L (16-63); AST 14 U/L (15-37); Albumin 3.4 g/dL (3.4-5.0); Alkaline Phosphatase 52 U/L (46-116); BUN 20 mg/dL (7-18); Bilirubin, Total 0.3 mg/dL (0.2-1.0); CREATININE 0.74 mg/dL (0.70-1.30); Calcium 8.4 mg/dL (8.5-10.1); Chloride 103 mmol/L (98-107); FREE T4 0.58 ng/dL (0.76-1.46); Glucose 103 mg/dL (74-106); Magnesium 1.8 mg/dL (1.8-2.4); Potassium 3.8 mmol/L (3.5-5.1); Sodium 139 mmol/L (136-145); TSH 0.51 uIU/mL (0.36-3.74); Total Protein 6.7 g/dL (6.4-8.2)
[2019-05-26 11:44] LABS: Absolute Lymphocyte Count 0.57 k/cumm (1.2-3.4); Absolute Neutrophil Count 5.89 k/cumm (1.2-6.7)
[2019-05-26 11:45] LABS: Anisocytosis 2+; Diff Comment Manual Differential; Macrocytosis 2+; Polychromasia Present
== END 2019-05-26 10:56 ==
PROVIDERS: Nurse Practitioner Family; PCP Family Medicine
DX: C10.9 Malignant neoplasm of oropharynx, unspecified (principal); R22.0 Localized swelling, mass and lump, head
CPT/HCPCS: 36415; 80053; 83735; 84439; 84443; 85025

== ENCOUNTER 2019-06-01 02:09 | Outpatient (RCR) | payer MEDICAID, SELFPAY | END 2019-06-09 23:59 | disposition home or self-care (01) | LOC: INF 02:09 | PROVIDERS: PCP Family Medicine; Visit Provider Internal Medicine Hematology & Oncology | DX: R69 Illness, unspecified (principal) ==

== ENCOUNTER 2019-07-27 01:27 | Outpatient (RCR) | payer MEDICAID, SELFPAY ==
[2019-07-27] MEDS: Normal Saline Flush 10 ML SYR IVP (08:50)
[2019-07-27 09:11] LABS: ALT 42 U/L (16-63); AST 17 U/L (15-37); Alkaline Phosphatase 53 U/L (46-116); Anion Gap 5.7 mmol/L (3-11); BUN 24 mg/dL (7-18); Bilirubin, Total 0.2 mg/dL (0.2-1.0); CO2 31.3 mmol/L (21.0-32.0); CREATININE 0.79 mg/dL (0.70-1.30); Calcium 8.6 mg/dL (8.5-10.1); Chloride 101 mmol/L (98-107); Glucose 124 mg/dL (74-106); Potassium 3.9 mmol/L (3.5-5.1); Sodium 138 mmol/L (136-145); Total Protein 6.5 g/dL (6.4-8.2)
[2019-07-27 10:03] LABS: Abs Immature Grans 0.26 k/cumm (0.0-0.09); HCT 38.9 % (40.0-50.0); HGB 13.1 g/dL (13.5-17.5); Mean Corp. HGB Concentration 33.7 g/dL (32.0-36.0); Mean Corpuscular Hemoglobin 35.4 pg (27.0-33.0); Mean Corpuscular Volume 105.1 fL (80-95); Mean Platelet Volume 8.7 fL (8.0-11.0); Platelet Count 163 x1000/uL (130-400); RBC Distribution Width 15.1 % (11.8-14.1); White Blood Cell Count 6.11 k/cumm (4.4-10.8)
[2019-07-27 10:18] LABS: Absolute Lymphocyte Count 0.67 k/cumm (1.2-3.4); Absolute Monocyte Count 0.24 k/cumm (0.11-0.7); Absolute Neutrophil Count 5.01 k/cumm (1.2-6.7); Atypical Lymphocytes % 2; Diff Comment Manual Differential
[2019-07-27 10:19] LABS: Macrocytosis 2+; Polychromasia Present
== END 2019-08-09 23:59 | disposition home or self-care (01) ==
LOC: INF 01:27
PROVIDERS: PCP Family Medicine; Visit Provider Internal Medicine Hematology & Oncology
DX: C10.9 Malignant neoplasm of oropharynx, unspecified (principal); Z72.0 Tobacco use; G51.0 Bell's palsy; Z45.2 Encounter for adjustment and management of vascular access device
CPT/HCPCS: 36591; 80053; 85025

== ENCOUNTER 2019-08-23 15:10 | Emergency (ER) | payer MEDICAID, SELFPAY ==
[2019-08-23 15:14] VITALS: BP 135/55; PULSE 105; RESP 16; TEMP 36.7; O2SAT 97
--- NOTE | 2019-08-23 15:27 | ED.GENADUL_ITS ---
Discharge Plan Disposition Patient Disposition: HOME Condition: Stable Discharge Details Chief Complaint: GenMedical Clinical Impression: Dislodged gastrostomy tube Primary Care Provider: Matty Rasheed ED Provider: Perla Balbuena Home Meds and New Rx's Prescriptions: Continued oxycodone 15 mg tablet 15 mg PO Q4H PRN (Reason: pain) RF: 0 sennosides [Evac-U-Gen (sennosides)] 8.6 mg tablet 8.6 mg PO BID PRN (Reason: constipation) RF: 0 gabapentin 300 mg capsule 300 mg PO DAILY RF: 0 prochlorperazine maleate 10 mg tablet 10 mg PO DAILY RF: 0 bisacodyl 10 mg suppository 10 mg AR DAILY PRN (Reason: constipation) Qty: 16 RF: 2 polyethylene glycol 3350 17 gram/dose powder 17 gm PO BID RF: 0 Discharge Instructions Instructions: How to Use and Care for Your PEG Tube (ED) Additional Instructions: Call [facility] radiology tomorrow to inform them that you will not need to follow-up for your appointment for the G-tube removal tomorrow. Keep the area clean and dry. Wash area with soap and water and cover with dressing risk of contamination. Follow-up with your scheduled appointment with radiation oncology on September 01. Follow-up with your scheduled appointment with hematology oncology on September 06. Return immediately to the emergency department if you develop any worsening concerning symptoms such as fever, vomiting, abdominal pain or any other concerns. Discharge Data Discharge Physician: Perla Balbuena Medical Decision Making 54-year-old male with a history of oropharyngeal cancer followed by radiation oncology and hematology oncology at [facility] who presents with dislodged G-tube since last evening. He has not used G-tube for the past 4 months and was s cheduled to have it removed by interventional radiology at [facility] tomorrow. Vitals within normal limits. He appears nontoxic. G-tube site without surrounding cellulitis or drainage. Case discussed with [facility] hematology oncology and interventional radiology. As patient has not been using this for the past 4 months and has been taking solid foods and plan for removal tomorrow, no indication for replacement at this time. Patient advised to follow-up with his scheduled appointment with radiation oncology on September 01 and hematology on Saturday on September 06. Usual and customary return precautions given prior to discharge. Medical Records Medical records reviewed: Yes I reviewed the patient's medical records. HPI General Mode of arrival: ambulatory . Date/Time Provider Initiated Documentation: 08/23/19 15:17 . Limitations to Documentation: no limitations . Information obtained by: patient . HPI Narrative: Patient is a 54-year-old male with a history of oropharyngeal cancer diagnosed 1 year ago treated with radiation resulting in decreased ability to take p.o. requiring placement of a G-tube who presents for dislodged G-tube since last night. Patient states he has not used the G-tube for the past 4 months and has been taking normal solid foods. He denies any fever, vomiting, abdominal pain. Related Data Home Medications Medication Instructions Recorded Confirmed bisacodyl 10 mg rectal suppository 10 mg AR DAILY PRN #16 each 06/30/18 06/30/18 gabapentin 300 mg capsule 300 mg PO DAILY 06/30/18 06/30/18 oxycodone 15 mg tablet 15 mg PO Q4H PRN tab 06/30/18 06/30/18 polyethylene glycol 3350 17 17 gm PO BID gm 06/30/18 06/30/18 gram/dose oral powder prochlorperazine maleate 10 mg 10 mg PO DAILY 06/30/18 06/30/18 tablet sennosides 8.6 mg tablet 8.6 mg PO BID PRN 06/30/18 06/30/18 Previous Rx's Medication Instructions Recorded bisacodyl 10 mg rectal suppository 10 mg AR DAILY PRN #16 each 06/30/18 Allergies Allergy/AdvReac Type Severity Reaction Status Date / Time No Known Allergies Allergy Unverified 06/30/18 16:08 General Stated Complaint: GenMedical SIRISHA: 4 Review of Systems All systems reviewed & are unremarkable except as noted in HPI and below Constitutional Constitutional: Reports as per HPI, Denies chills and Denies fever(s) Eyes Eyes: Denies blurry vision ENT Ears, Nose, Mouth, and Throat: Denies dizziness, Denies sore throat and Denies throat swelling Cardiovascular Cardiovascular: Denies chest pain and Denies dyspnea Respiratory Respiratory: Denies cough and Denies dyspnea Gastrointestinal Gastrointestinal: Denies abdominal pain, Denies diarrhea and Denies vomiting Genitourinary Genitourinary: Denies hematuria and Denies dysuria Musculoskeletal Musculoskeletal: Denies back pain and Denies numbness Integumentary/Breasts Skin/Breast: Denies lesions and Denies rash Neurologic Neurologic: Denies dizziness, Denies localized weakness and Denies numbness Allergic/Immunologic Allergic/Immunologic: Denies throat swelling [facility] Medical History (Updated 08/23/19 @ 16:47 by Perla Balbuena DO) Heavy tobacco smoker (Acute) Oropharyngeal cancer (Acute) Social History (Updated 07/02/18 @ 12:13 by Vikas Garcia) Smoking/Tobacco Use Status: Current every day Tobacco Type: cigarettes Smoking packs per day: 1 Smoking cigarettes per day: 20.0 Tobacco: How many years used: 34 Quit status: considering quitting Second Hand Exposure: Yes Alcohol Intake: former Year quit: 2016 Drug use: Never Substance use type: does not use Caregiver/Support person: No Household members: family Do you need help understanding health information?: Never Pets and animals: No Sexually active: No Do you think of yourself as: straight/heterosexual Current gender identity: male What is your relationship status?: refused to answer How often do you talk on the phone with friends or family?: decline to answer How often do you get together with friends or relatives?: decline to answer How often do you attend baptist or mormonism services?: decline to answer Do you belong to any clubs or organized social groups?: decline to answer Panel score (0-1 are the most socially isolated patients): 0 What type of physical activity do you participate in: decline to answer Duration: decline to answer Frequency: decline to answer Ella/Samaritan: None Special ella needs: No Seatbelt use: sometimes Drive intox or ride w/intox special needs bus driver: No Do you feel safe at home: Yes Do you feel safe in your relationship?: Yes Exam Const General: cooperative, healthy appearing and no acute distress HENMT Head: normal to inspection Face and sinus: normal facial exam Eyes General: appearance normal, both eyes and all related structures EOM: EOM intact bilaterally Neck Neck: normal visual inspection and No submandibular swelling Lymphatic: no lymphadenopathy noted Chest Chest: normal inspection of the chest and no tenderness Resp Effort & Inspection: normal respiratory effort and able to speak in complete sentences Auscultation: clear to auscultation bilaterally Cardio Rate: regular rate Rhythm: regular rhythm GI Palpation: soft, not firm, not rigid and nontender Auscultation: normal bowel sounds Abdomen image: 1. [id number] open wound c/w previously placed G tube. No surrounding fluctuance, induration, erythema, edema or tenderness. Skin General skin exam: no rashes or lesions noted Neuro General: patient alert, patient awake and patient oriented x3 Cognition: normal cognition Speech: speech normal Motor: muscle tone normal throughout Sensory Exam: no sensory deficits noted Extrem General: normal to inspection, full ROM, capillary refill normal, no calf tenderness bilaterally and no edema Psych Appearance: grossly normal Mental Status: mental status grossly normal Speech and Movement: speech and movement normal Affect: normal affect Course Vital Signs Vital signs: Vital Signs Temperature 98.1 F 08/23/19 15:14 Pulse 105 H 08/23/19 15:14 Respiratory Rate 16 08/23/19 15:14 Blood Pressure 135/55 L 08/23/19 15:14 Pulse Oximetry 97 08/23/19 15:14 Temperature 98.1 F 08/23/19 15:14 Temperature Source Tympanic 08/23/19 15:14 Pulse 105 H 08/23/19 15:14 Respiratory Rate 16 08/23/19 15:14 Respiratory Effort 08/23/19 15:17 Respiratory Depth Normal 08/23/19 15:17 Respiratory Pattern Normal 08/23/19 15:17 Blood Pressure 135/55 L 08/23/19 15:14 Blood Pressure Position Sitting 08/23/19 15:14 Pulse Oximetry 97 08/23/19 15:14 Oxygen Delivery Method Room Air 08/23/19 15:14 Oxygen Flow Rate 0 08/23/19 15:14 Pain Level 0 08/23/19 15:14
[2019-08-23 16:27] VITALS: BP 125/77; PULSE 77; RESP 16; TEMP 36.6; O2SAT 97
== END 2019-08-23 16:30 | disposition home or self-care (01) ==
PROVIDERS: Emergency Provider Physician Assistant; PCP Family Medicine
DX: T85.528A Displacement of other gastrointestinal prosthetic devices, implants and grafts, initial encounter (principal); Z93.1 Gastrostomy status; C10.9 Malignant neoplasm of oropharynx, unspecified; Z92.3 Personal history of irradiation; F17.210 Nicotine dependence, cigarettes, uncomplicated
CPT/HCPCS: 99282

== ENCOUNTER 2019-09-07 01:51 | Outpatient (RCR) | payer MEDICAID, SELFPAY ==
[2019-08-17] MEDS: Normal Saline Flush 10 ML SYR IVP (08:55)
[2019-08-17 09:10] LABS: Abs Immature Grans 0.26 k/cumm (0.0-0.09); HCT 35.6 % (40.0-50.0); HGB 11.6 g/dL (13.5-17.5); Mean Corp. HGB Concentration 32.6 g/dL (32.0-36.0); Mean Corpuscular Hemoglobin 33.5 pg (27.0-33.0); Mean Corpuscular Volume 102.9 fL (80-95); Platelet Count 337 x1000/uL (130-400); RBC 3.46 m/cumm (4.50-6.00); RBC Distribution Width 14.9 % (11.8-14.1); White Blood Cell Count 6.54 k/cumm (4.4-10.8)
[2019-08-17 09:22] LABS: Absolute Lymphocyte Count 0.92 k/cumm (1.2-3.4); Absolute Neutrophil Count 4.77 k/cumm (1.2-6.7); Atypical Lymphocytes % 1
[2019-08-17 09:23] LABS: ALT 30 U/L (16-63); AST 17 U/L (15-37); Absolute Monocyte Count 0.59 k/cumm (0.11-0.7); Albumin 3.1 g/dL (3.4-5.0); Alkaline Phosphatase 87 U/L (46-116); Anion Gap 8.6 mmol/L (3-11); BUN 11 mg/dL (7-18); Bilirubin, Total 0.2 mg/dL (0.2-1.0); CO2 27.4 mmol/L (21.0-32.0); CREATININE 0.77 mg/dL (0.70-1.30); Calcium 9.1 mg/dL (8.5-10.1); Chloride 105 mmol/L (98-107); Diff Comment Manual Differential; Glucose 108 mg/dL (74-106); Macrocytosis 2+; Polychromasia Present; Sodium 141 mmol/L (136-145); Total Protein 7.2 g/dL (6.4-8.2)
[2019-09-07] MEDS: Normal Saline Flush 10 ML SYR IVP (10:46)
[2019-09-07 10:57] LABS: Abs Immature Grans 0.09 k/cumm (0.0-0.09); Absolute Basophil Count 0.01 k/cumm (0.0-0.2); Absolute Lymphocyte Count 0.69 k/cumm (1.2-3.4); Absolute Monocyte Count 0.36 k/cumm (0.11-0.7); Absolute Neutrophil Count 8.29 k/cumm (1.2-6.7); Basophils % 0.1; HCT 34.9 % (40.0-50.0); HGB 11.6 g/dL (13.5-17.5); Lymphocytes % 7.3; Mean Corp. HGB Concentration 33.2 g/dL (32.0-36.0); Mean Corpuscular Hemoglobin 33.1 pg (27.0-33.0); Mean Corpuscular Volume 99.7 fL (80-95); Mean Platelet Volume 8.2 fL (8.0-11.0); Monocytes % 3.8; Neutrophils % 87.8; RBC Distribution Width 15.4 % (11.8-14.1); White Blood Cell Count 9.44 k/cumm (4.4-10.8)
[2019-09-07 11:04] LABS: Platelet Count 649 x1000/uL (130-400)
[2019-09-07 11:08] LABS: ALT 15 U/L (16-63); AST 14 U/L (15-37); Albumin 3.4 g/dL (3.4-5.0); Alkaline Phosphatase 88 U/L (46-116); Anion Gap 11.2 mmol/L (3-11); BUN 13 mg/dL (7-18); Bilirubin, Total 0.2 mg/dL (0.2-1.0); CO2 23.8 mmol/L (21.0-32.0); CREATININE 1.05 mg/dL (0.70-1.30); Calcium 9.1 mg/dL (8.5-10.1); Chloride 102 mmol/L (98-107); Glucose 180 mg/dL (74-106); Potassium 3.8 mmol/L (3.5-5.1); Sodium 137 mmol/L (136-145); Total Protein 7.3 g/dL (6.4-8.2)
== END 2019-09-08 23:59 | disposition home or self-care (01) ==
LOC: INF 01:51
PROVIDERS: PCP Family Medicine; Visit Provider Internal Medicine Hematology & Oncology
DX: C10.9 Malignant neoplasm of oropharynx, unspecified (principal); Z45.2 Encounter for adjustment and management of vascular access device
CPT/HCPCS: 36591; 80053; 85025

== ENCOUNTER 2019-09-08 01:19 | Outpatient (CLI) | payer MEDICAID, SELFPAY ==
--- NOTE | 2019-09-08 | DI.MRI_ITS ---
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 CONTRAST MATERIAL: IV Contrast: 14 ML of Dotarem contrast administered. COMPARISON: CT CT neck w from 04/29/2018 MR MRI NECK WITH/WO CONTRAST from 06/12/2018 MR MRI BRAIN WWO from 05/20/2019 FINDINGS: VENTRICLES AND EXTRA AXIAL SPACES: Normal in size and morphology for the patient's age. HEMORRHAGE: None. CEREBRAL PARENCHYMA: No focus of restricted diffusion to suggest acute infarct. No space-occupying le chai identified. Since the prior examination there is increased hyperintense signal in the [place] er in the right temporal lobe no sulcal effacement is identified. MIDLINE SHIFT: None. BRAINSTEM/CEREBELLUM: Normal. CALVARIUM: The left clival lesion appears stable. ENHANCEMENT: The enhancing lesion involving the right middle cranial fossa posterior cranial fossa is again noted. It appears grossly unchanged in size and extent compared to the prior examination. Does not appear to be progression of disease. VISUALIZED PARANASAL SINUSES/MASTOIDS: There is persistent hyperintense signal within the mid right m astoid air cells. There is slight improvement of the opacification of the ethmoid air cells. There is persistent mucosal thickening in the maxillary sinuses. Mucous retention cysts or polyps are seen in the maxillary sinuses bilaterally. MCGRATH OF GONZALES: Normal flow void. PITUITARY GLAND: Unremarkable. OTHER FINDINGS: IMPRESSION: 1. Stable large dural based lesion involving the right middle and posterior fossa. 2. Stable lesion involving the left clivus. DATA REPOSITORY:
[2019-09-08] MEDS: Normal Saline Flush 10 ML SYR IVP (10:19)
[2019-09-08] MEDS: Gadoterate meglumine 20 ML VIAL 14 ML IVP (10:20)
== END 2019-09-08 01:39 ==
PROVIDERS: PCP Family Medicine; Visit Provider Preventive Medicine Undersea and Hyperbaric Medicine
DX: C09.9 Malignant neoplasm of tonsil, unspecified (principal); Z92.3 Personal history of irradiation; R90.82 White matter disease, unspecified; G93.89 Other specified disorders of brain; J32.0 Chronic maxillary sinusitis
CPT/HCPCS: 70553

== ENCOUNTER 2019-09-28 01:55 | Outpatient (RCR) | payer MEDICAID, SELFPAY ==
[2019-09-28 08:42] LABS: Abs Immature Grans 0.21 k/cumm (0.0-0.09); Absolute Basophil Count 0.02 k/cumm (0.0-0.2); Absolute Eosinophil Count 0.06 k/cumm (0.0-0.7); Absolute Lymphocyte Count 1.16 k/cumm (1.2-3.4); Absolute Monocyte Count 0.66 k/cumm (0.11-0.7); Absolute Neutrophil Count 6.17 k/cumm (1.2-6.7); Basophils % 0.2; Eosinophils % 0.7; HCT 34.9 % (40.0-50.0); HGB 11.1 g/dL (13.5-17.5); Immature Grans % 2.5 %; Mean Corp. HGB Concentration 31.8 g/dL (32.0-36.0); Mean Corpuscular Hemoglobin 31.3 pg (27.0-33.0); Mean Corpuscular Volume 98.3 fL (80-95); Mean Platelet Volume 8.1 fL (8.0-11.0); Neutrophils % 74.6; Platelet Count 533 x1000/uL (130-400); RBC 3.55 m/cumm (4.50-6.00); RBC Distribution Width 16.5 % (11.8-14.1); White Blood Cell Count 8.28 k/cumm (4.4-10.8)
[2019-09-28] MEDS: Normal Saline Flush 10 ML SYR IVP (08:45)
[2019-09-28 08:58] LABS: ALT 16 U/L (16-63); AST 17 U/L (15-37); Albumin 3.2 g/dL (3.4-5.0); Alkaline Phosphatase 92 U/L (46-116); Anion Gap 11.5 mmol/L (3-11); BUN 15 mg/dL (7-18); Bilirubin, Total 0.3 mg/dL (0.2-1.0); CO2 25.5 mmol/L (21.0-32.0); CREATININE 0.83 mg/dL (0.70-1.30); Calcium 9.3 mg/dL (8.5-10.1); Chloride 101 mmol/L (98-107); Glucose 119 mg/dL (74-106); Potassium 3.7 mmol/L (3.5-5.1); Sodium 138 mmol/L (136-145); Total Protein 7.3 g/dL (6.4-8.2)
== END 2019-10-09 23:59 | disposition home or self-care (01) ==
LOC: INF 01:55
PROVIDERS: PCP Family Medicine; Visit Provider Internal Medicine Hematology & Oncology
DX: C10.9 Malignant neoplasm of oropharynx, unspecified (principal); Z45.2 Encounter for adjustment and management of vascular access device
CPT/HCPCS: 36591; 80053; 85025

== ENCOUNTER 2019-10-15 01:06 | Outpatient (CLI) | payer MEDICAID, SELFPAY ==
--- NOTE | 2019-10-15 | DI.CT_ITS ---
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 The current examination is compared with prior study from [facility] of July 15. Previously described multiple pulmonary nodules are again seen, there is waxing and waning of multipl e nodules although predominantly the nodules have increased in size. Largest lesion is now a 3.4 cm in diameter right apical lesion. No pleural effusion seen. There is increased prominence of left hilar lymph nodes and right hilar ly mph nodes. Left hilar maren mass now measures about 28 by 23 millimeters in diameter as compared to 28 by 14 millimeters in diameter on the prior study. No evidence of pulmonary embolic disease. No s ignificant supraclavicular or axillary adenopathy. There are innumerable hepatic lesions now visible which were not present on the prior study. Finding s are highly suggestive of widespread hepatic metastatic disease. Largest lesion is a right hepatic lobe mass measuring 35 millimeters in diameter. Spleen is unremarkable. Pancreas appears normal. Adrenals and kidneys appear normal. No urinary tract calcification or obstruction. Abdominal aorta and major visceral branches are unremarkable. Gallbladder and bile ducts are CT normal. No focal bony destructive lesion identified in the region surveyed. I would note however that there are new endplate compressions of L1, L3, and L5, the L1 and L3 endplate compressions are new since prior study. Underlying metastatic disease of bone not entirely excluded, correlation with bone sc an or lumbar spine MRI may be considered for further evaluation. IMPRESSION: Multiple waxing and waning intrapulmonary nodules, the general trend is towards increasing size of mu ltiple pulmonary metastatic nodules. Increased prominence of left and right hilar enlarged lymph nod es also noted. Multiple new intrahepatic metastatic lesions, the largest about 3.5 cm in diameter. New endplate compressions of L1 and L3, additional evaluation with lumbar spine MR may be considered if clinically appropriate to evaluate the possibility of occult metastatic disease.
[2019-10-15] MEDS: Omnipaque 350 MG/ML 50 ML BTL IJ (09:12)
[2019-10-15] MEDS: Omnipaque 350 MG/ML 100 ML BTL IV (10:15)
[2019-10-15] MEDS: Normal Saline Flush 10 ML SYR IVP (10:16)
[2019-10-15] MEDS: Normal Saline - Diluent 50 ML VIAL IV (10:16)
== END 2019-10-15 01:26 ==
PROVIDERS: PCP Family Medicine; Visit Provider Internal Medicine Hematology & Oncology
DX: C10.9 Malignant neoplasm of oropharynx, unspecified (principal); R91.8 Other nonspecific abnormal finding of lung field; C78.7 Secondary malignant neoplasm of liver and intrahepatic bile duct
CPT/HCPCS: 71260; 74160; J3490; Q9967

== ENCOUNTER 2019-10-26 12:36 | Outpatient (RCR) | payer MEDICAID, SELFPAY ==
[2019-10-26] MEDS: Normal Saline Flush 10 ML SYR 30 ML IVP (13:00)
[2019-10-26 13:25] LABS: Abs Immature Grans 0.13 10^3/uL (0.0-0.06); Absolute Basophil Count 0.07 10^3/uL (0.0-0.2); Absolute Eosinophil Count 0.05 10^3/uL (0.0-0.7); Absolute Lymphocyte Count 0.72 10^3/uL (1.2-3.4); Absolute Monocyte Count 1.45 10^3/uL (0.1-0.8); Basophils % 0.4; Eosinophils % 0.3; HCT 34.2 % (40.0-50.0); HGB 10.9 g/dL (13.5-17.5); Immature Grans % 0.8; Lymphocytes % 4.4; MCH 29.5 pg (27.0-33.0); MCHC 31.9 % (32.0-36.0); MCV 92.4 fL (80-95); Monocytes % 8.9; Neutrophils % 85.2; Nucleated RBC 0 %; RDW 16.7 % (11.8-14.1); RDW-SD 57.1 fL; WBC 16.25 10^3/uL (4.4-10.8)
[2019-10-26 13:32] LABS: Absolute Neutrophil Count 13.85 10^3/uL (1.2-6.7)
[2019-10-26 13:35] LABS: ALT 13 U/L (16-63); AST 40 U/L (15-37); Albumin 2.9 g/dL (3.4-5.0); Alkaline Phosphatase 172 U/L (46-116); Anion Gap 18.5 mmol/L (3-11); BUN 8 mg/dL (7-18); Bilirubin, Total 0.4 mg/dL (0.2-1.0); CO2 22.5 mmol/L (21.0-32.0); CREATININE 0.75 mg/dL (0.70-1.30); Calcium 9.2 mg/dL (8.5-10.1); Chloride 93 mmol/L (98-107); Glucose 87 mg/dL (74-106); Potassium 3.3 mmol/L (3.5-5.1); Sodium 134 mmol/L (136-145)
[2019-10-26 14:37] LABS: Anisocytosis 1+; Diff Comment Diff Reviewed; Hypochromasia 1+; Platelet Count 691 10^3/uL (130-400)
== END 2019-11-09 23:59 | disposition home or self-care (01) ==
LOC: INF 12:36
PROVIDERS: PCP Family Medicine; Visit Provider Internal Medicine Hematology & Oncology
DX: C10.9 Malignant neoplasm of oropharynx, unspecified (principal); Z45.2 Encounter for adjustment and management of vascular access device; Z72.0 Tobacco use; G51.0 Bell's palsy
CPT/HCPCS: 36591; 80053; 85025

== ENCOUNTER 2019-11-23 08:30 | Outpatient (RCR) | payer MEDICAID, SELFPAY | END 2019-12-04 23:59 | disposition home or self-care (01) | LOC: INF 08:30 | PROVIDERS: PCP Family Medicine; Visit Provider Internal Medicine Hematology & Oncology | DX: Z53.9 Procedure and treatment not carried out, unspecified reason (principal) ==